=== PATIENT | male | born 1950 | race African-American/Black ===

== ENCOUNTER 2018-01-25 13:13 | Observation (INO) | payer MEDICARE ==
[2018-01-25] MEDS ORDERED: NORMAL SALINE 1000 ML 1,000 ML IV PRN ×2 (15:54→20:38)
[2018-01-25 17:10] LABS: ABSOLUTE BASOPHILS # (AUTO) 0.1 10^3/uL (0.0-0.2); ABSOLUTE LYMPHOCYTES (AUTO) 1.6 10^3/uL (0.5-4.7); ABSOLUTE MONOCYTES (AUTO) 0.5 10^3/uL (0.1-1.4); ABSOLUTE NEUT (AUTO) 3.1 10^3/uL (1.7-8.2); BASOPHILS % (AUTO) 1.3 % (0-2); EOSINOPHILS % (AUTO) 0.2 % (0-6); HEMATOCRIT 40.9 % (37.9-51.0); LYMPHOCYTES % (AUTO) 30.3 % (13-45); MEAN CORPUSCULAR VOLUME 79 fl (80-97); MONOCYTES % (AUTO) 9.7 % (3-13); PLATELET COUNT 250 10^3/uL (150-450); RED BLOOD COUNT 5.21 10^6/uL (4.35-5.55); RED CELL DISTRIBUTION WIDTH 15.9 % (11.5-14.0); SEGMENTED NEUTROPHILS % (AUTO) 58.5 % (42-78); TOTAL CELLS COUNTED % (AUTO) 100 %; WHITE BLOOD COUNT 5.4 10^3/uL (4.0-10.5)
--- NOTE | 2018-01-25 17:14 | RADIOLOGY REPORT (SQ) ---
EXAM DESCRIPTION: CHEST SINGLE VIEW COMPLETED DATE/TIME: 01/25/2018 4:56 pm REASON FOR STUDY: Frequent urination and thirst, SDR COMPARISON: CT chest 10/10/2014 EXAM PARAMETERS: NUMBER OF VIEWS: One view. TECHNIQUE: Single frontal radiographic view of the chest acquired. RADIATION DOSE: NA LIMITATIONS: None. FINDINGS: LUNGS AND PLEURA: No opacities, masses or pneumothorax. No pleural effusion. MEDIASTINUM AND HILAR STRUCTURES: No masses. Contour normal. HEART AND VASCULAR STRUCTURES: Heart normal in size. Normal vasculature. BONES: No acute findings. HARDWARE: None in the chest. OTHER: No other significant finding. IMPRESSION: NO ACUTE RADIOGRAPHIC FINDING IN THE CHEST. TECHNICAL DOCUMENTATION: JOB ID: [id number] [employer]- All Rights Reserved Reading location - IP/workstation name: [email or web address]
[2018-01-25 17:41] LABS: HEMOGLOBIN 13.7 g/dL (13.5-17.0); MEAN CORPUSCULAR HEMOGLOBIN 26.3 pg (27.0-33.4); MEAN CORPUSCULAR HGB CONC 33.5 g/dL (32.0-36.0)
[2018-01-25 18:39] LABS: ALANINE AMINOTRANSFERASE 53 U/L (21-72); ALBUMIN 3.7 g/dL (3.5-5.0); ALKALINE PHOSPHATASE 99 U/L (38-126); ANION GAP 13 (5-19); ASPARTATE AMINO TRANSFERASE 33 U/L (17-59); BILIRUBIN,DIRECT 0.6 mg/dL (0.0-0.4); BILIRUBIN,TOTAL 0.6 mg/dL (0.2-1.3); BLOOD UREA NITROGEN 18 mg/dL (7-20); CALCIUM 9.3 mg/dL (8.4-10.2); CARBON DIOXIDE 22 mmol/L (22-30); CHLORIDE 98 mmol/L (98-107); POTASSIUM 5.4 mmol/L (3.6-5.0); SODIUM 132.7 mmol/L (137-145); TOTAL PROTEIN 7.3 g/dL (6.3-8.2)
[2018-01-25 18:49] LABS: GLUCOSE 449 mg/dL (75-110)
[2018-01-25 19:09] LABS: FREE T4 (FREE THYROXINE) 1.36 ng/dL (0.78-2.19)
[2018-01-25 19:23] LABS: THYROID STIMULATING HORMONE 0.54 uIU/mL (0.47-4.68)
[2018-01-25] MEDS ORDERED: METFORMIN HCL 500 MG TABLET PO ONE (20:35)
[2018-01-25] MEDS ORDERED: DEXTROSE 50%-WATER 25 GM/50 ML DISP.SYRIN IV PRN ×2 (20:38)
[2018-01-25] MEDS ORDERED: GLUCAGON,HUMAN RECOMB 1 MG INJ IM PRN (20:38)
[2018-01-25] MEDS ORDERED: DEXTROSE 40% GEL 15 GM TUBE PO PRN ×2 (20:38)
[2018-01-25] MEDS ORDERED: NORMAL SALINE 100 ML with INSULIN REGULAR, HUMAN 100 UNIT IV PRN ×2 (20:38)
[2018-01-25] MEDS ORDERED: (PENDING PHARMACY ID) (Omega-3/Dha/Epa/Fish Oil [Fish Oil 1,000 Mg Softgel] 1 CAP) PO SCH (20:45)
[2018-01-25] MEDS ORDERED: (PENDING PHARMACY ID) (Lisinopril/Hydrochlorothiazide [Lisinopril-Hctz 20-12.5 Mg Tab] 1 T PO SCH (20:45)
[2018-01-25] MEDS ORDERED: MULTIVITAMIN WITH IRON PO SCH (20:45)
--- NOTE | 2018-01-25 20:47 | PDOC H&P ---
History of Present Illness Admission Date/PCP: 01/25/18 13:13 RON GIBSON MD History of Present Illness: PEPE KUO is a 67 year old male,He came to the office today, this is the first office visit in 2 years, for evaluation of, polyuria, polydipsia, polyphagia, weight loss the symptoms is consistent with classic diabetes mellitus, the Accu-Chek could not be recorded, he was clinically dry on examination, he was admitted directly from the office into the hospital for evaluation the point of care glucose was 476 metabolic panel did not show any acidosis. He is admitted directly into the hospital essentially for hydration and normalization of the serum glucose Past Medical History Cardiac Medical History: Reports: Hypertension Social History Smoking Status: Current Every Day Smoker Cigarettes Packs Per Day: 4 Cigars Per Day: 0 Pipes Per Day: 0 Number of Years Smokin Last Time Smoked: January 24, 2018 Frequency of Alcohol Use: Occasional Hx Recreational Drug Use: No Drugs: None Family History Family History: Reviewed & Not Pertinent Parental Family History Reviewed: Yes Children Family History Reviewed: Yes Sibling(s) Family History Reviewed.: Yes Medication/Allergy Home Medications: Aspirin [Aspirin EC] 81 mg PO DAILY 01/25/18 Lisinopril/Hydrochlorothiazide [Lisinopril-Hctz 20-12.5 mg Tab] 1 tab PO DAILY 01/25/18 Multivitamin with Iron [One Daily Multivitamin] 1 tab PO DAILY 01/25/18 [place]-3/Dha/Epa/Fish Oil [Fish Oil 1,000 mg Softgel] 1 cap PO DAILY 01/25/18 Review of Systems Constitutional: PRESENT: weight loss Eyes: ABSENT: visual disturbances Ears: ABSENT: hearing changes Cardiovascular: ABSENT: chest pain, dyspnea on exertion, edema, orthropnea, palpitations Respiratory: ABSENT: cough, hemoptysis Gastrointestinal: ABSENT: abdominal pain, constipation, diarrhea, hematemesis, hematochezia, nausea, vomiting Genitourinary: ABSENT: dysuria, hematuria Musculoskeletal: ABSENT: joint swelling Integumentary: ABSENT: rash, wounds Neurological: ABSENT: abnormal gait, abnormal speech, confusion, dizziness, focal weakness, syncope Psychiatric: ABSENT: as per HPI, anxiety, depression, hallucinations, homidical ideation, suicidal ideation, other Endocrine: PRESENT: polydipsia, polyphagia, polyuria Hematologic/Lymphatic: ABSENT: easy bleeding, easy bruising, lymphadenopathy Physical Exam Vital Signs: Temp Pulse Resp BP Pulse Ox 98.1 F 97 20 129/82 H 96 01/25/18 15:36 01/25/18 17:00 01/25/18 14:52 01/25/18 15:36 01/25/18 15:36 Intake & Output 01/24/18 01/25/18 01/26/18 06:59 06:59 06:59 Intake Total 110 Output Total 0 Balance 110 General appearance: PRESENT: no acute distress, well-developed, well-nourished Head exam: PRESENT: atraumatic, normocephalic Eye exam: PRESENT: conjunctiva pink, EOMI, PERRLA Ear exam: PRESENT: normal external ear exam Mouth exam: PRESENT: dry mucosa Neck exam: PRESENT: full ROM Respiratory exam: PRESENT: clear to auscultation maira Cardiovascular exam: PRESENT: RRR, +S1, +S2 Pulses: PRESENT: normal dorsalis pedis pul, +2 pedal pulses bilateral Vascular exam: PRESENT: normal capillary refill GI/Abdominal exam: PRESENT: normal bowel sounds, soft Rectal exam: PRESENT: deferred Neurological exam: PRESENT: alert, awake, oriented to person, oriented to place , oriented to time, oriented to situation, CN II-XII grossly intact Psychiatric exam: PRESENT: appropriate affect, normal mood Skin exam: PRESENT: dry, intact, warm Results Laboratory Results: 01/25/18 16:36 01/25/18 18:00 01/25/18 01/25/18 01/25/18 16:36 16:36 16:36 WBC 5.4 RBC 5.21 Hgb 13.7 Hct 40.9 MCV 79 L MCH 26.3 L MCHC 33.5 RDW 15.9 H Plt Count 250 Seg Neutrophils % 58.5 Lymphocytes % 30.3 Monocytes % 9.7 Eosinophils % 0.2 Basophils % 1.3 Absolute Neutrophils 3.1 Absolute Lymphocytes 1.6 Absolute Monocytes 0.5 Absolute Eosinophils 0.0 Absolute Basophils 0.1 Sodium Cancelled Potassium Cancelled Chloride Cancelled Carbon Dioxide Cancelled Anion Gap Cancelled BUN Cancelled Creatinine Cancelled Est GFR ( Amer) Cancelled Est GFR (Non-Af Amer) Cancelled Glucose Cancelled Calcium Cancelled Total Bilirubin Cancelled AST Cancelled ALT Cancelled Alkaline Phosphatase Cancelled Total Protein Cancelled Albumin Cancelled TSH Cancelled Free T4 Cancelled 01/25/18 01/25/18 18:00 18:00 WBC RBC Hgb Hct MCV MCH MCHC RDW Plt Count Seg Neutrophils % Lymphocytes % Monocytes % Eosinophils % Basophils % Absolute Neutrophils Absolute Lymphocytes Absolute Monocytes Absolute Eosinophils Absolute Basophils Sodium 132.7 L Potassium 5.4 H Chloride 98 Carbon Dioxide 22 Anion Gap 13 BUN 18 Creatinine 0.76 Est GFR ( Amer) > 60 Est GFR (Non-Af Amer) > 60 Glucose 449 H* Calcium 9.3 Total Bilirubin 0.6 AST 33 ALT 53 Alkaline Phosphatase 99 Total Protein 7.3 Albumin 3.7 TSH 0.54 Free T4 1.36 Impressions: Chest X-Ray 01/25/18 00:00 IMPRESSION: NO ACUTE RADIOGRAPHIC FINDING IN THE CHEST. Assessment & Plan - Diagnosis (1) Diabetic hyperosmolar non-ketotic state Is this a current diagnosis for this admission?: Yes Plan: Patient is admitted for observation for the management of diabetic hyperosmolar nonketotic state the mainstay of treatment is IV fluid normal saline, he has type 2 diabetes mellitus, he is also started on metformin, Januvia, atorvastatin , he may also require insulin drip to a normalized the serum glucose efficiently and effectively before discharge home
[2018-01-25] MEDS ORDERED: ASPIRIN 81 MG TABLET, ENT COATED PO ONE (21:00)
[2018-01-25 21:36] LABS: ANION GAP 10 (5-19); BLOOD UREA NITROGEN 18 mg/dL (7-20); CALCIUM 8.9 mg/dL (8.4-10.2); CARBON DIOXIDE 21 mmol/L (22-30); CHLORIDE 100 mmol/L (98-107); POTASSIUM 5.2 mmol/L (3.6-5.0); SODIUM 131.1 mmol/L (137-145)
[2018-01-25 21:56] LABS: GLUCOSE 420 mg/dL (75-110)
[2018-01-25] MEDS ORDERED: ATORVASTATIN CALCIUM 40 MG TABLET PO SCH (22:00)
[2018-01-25 22:14] LABS: MEAN CORPUSCULAR VOLUME 78 fl (80-97)
[2018-01-25 22:22] LABS: INTERNATIONAL RATION (INR) 0.97; PROTHROMBIN TIME 13.4 SEC (11.4-15.4)
[2018-01-25 22:23] LABS: HEMATOCRIT 37.6 % (37.9-51.0); PARTIAL THROMBOPLASTIN TIME 33.5 SEC (23.5-35.8); RED BLOOD COUNT 4.79 10^6/uL (4.35-5.55); WHITE BLOOD COUNT 5.8 10^3/uL (4.0-10.5)
[2018-01-25 22:24] LABS: HEMOGLOBIN 12.6 g/dL (13.5-17.0); PLATELET COUNT 232 10^3/uL (150-450); RED CELL DISTRIBUTION WIDTH 15.7 % (11.5-14.0)
[2018-01-25 22:25] LABS: MEAN CORPUSCULAR HEMOGLOBIN 26.3 pg (27.0-33.4); MEAN CORPUSCULAR HGB CONC 33.5 g/dL (32.0-36.0)
[2018-01-25 23:44] LABS: APPEARANCE,URINE CLEAR; BILIRUBIN,URINE NEGATIVE (NEGATIVE); COLOR,URINE STRAW; GLUCOSE, URINE >=500 mg/dL (NEGATIVE); KETONES,URINE 20 mg/dL (NEGATIVE); LEUKOCYTE ESTERASE,URINE NEGATIVE (NEGATIVE); NITRITE,URINE NEGATIVE (NEGATIVE); PROTEIN,URINE NEGATIVE (NEGATIVE); URINE SPECIFIC GRAVITY 1.028; UROBILINOGEN,URINE NEGATIVE mg/dL (<2.0)
[2018-01-26 01:29] LABS: ANION GAP 11 (5-19); BLOOD UREA NITROGEN 16 mg/dL (7-20); CALCIUM 8.5 mg/dL (8.4-10.2); CARBON DIOXIDE 21 mmol/L (22-30); CHLORIDE 102 mmol/L (98-107); GLUCOSE 315 mg/dL (75-110); POTASSIUM 4.6 mmol/L (3.6-5.0); SODIUM 134.1 mmol/L (137-145)
[2018-01-26 06:35] LABS: ANION GAP 6 (5-19); BLOOD UREA NITROGEN 12 mg/dL (7-20); CALCIUM 8.6 mg/dL (8.4-10.2); CARBON DIOXIDE 22 mmol/L (22-30); CHLORIDE 107 mmol/L (98-107); GLUCOSE 152 mg/dL (75-110); SODIUM 134.9 mmol/L (137-145)
--- NOTE | 2018-01-26 07:58 | PDOC DISCHARGE SUMMARY ---
General - Admit/Disc Date/PCP Admission Date/Primary Care Provider: 01/25/18 13:13 RON GIBSON MD Discharge Date: 01/26/18 - Discharge Diagnosis (1) Diabetic hyperosmolar non-ketotic state Is this a current diagnosis for this admission?: Yes - Additional Information Prescriptions: Atorvastatin Calcium [Lipitor 40 mg Tablet] 40 mg PO QHS #90 tablet Metformin HCl [Glucophage 500 mg Tablet] 1,000 mg PO BIDACBS #180 tablet Sitagliptin Phosphate [Januvia 50 mg Tablet] 100 mg PO DAILY #90 tablet Home Medications: Aspirin [Aspirin EC] 81 mg PO DAILY 01/25/18 Lisinopril/Hydrochlorothiazide [Lisinopril-Hctz 20-12.5 mg Tab] 1 tab PO DAILY 01/25/18 Multivitamin with Iron [One Daily Multivitamin] 1 tab PO DAILY 01/25/18 [place]-3/Dha/Epa/Fish Oil [Fish Oil 1,000 mg Softgel] 1 cap PO DAILY 01/25/18 Atorvastatin Calcium [Lipitor 40 mg Tablet] 40 mg PO QHS #90 tablet 01/26/18 Metformin HCl [Glucophage 500 mg Tablet] 1,000 mg PO BIDACBS #180 tablet Sitagliptin Phosphate [Januvia 50 mg Tablet] 100 mg PO DAILY #90 tablet History of Present Illness History of Present Illness: PEPE KUO is a 67 year old male,He came to the office today, this is the first office visit in 2 years, for evaluation of, polyuria, polydipsia, polyphagia, weight loss the symptoms is consistent with classic diabetes mellitus, the Accu-Chek could not be recorded, he was clinically dry on examination, he was admitted directly from the office into the hospital for evaluation the point of care glucose was 476 metabolic panel did not show any acidosis. He is admitted directly into the hospital essentially for hydration and normalization of the serum glucose Hospital Course Hospital Course: Patient was admitted for observation and management of hyperosmolar nonketotic diabetes mellitus, newly diagnosed diabetes, treated with IV fluid insulin drip. He was admitted essentially for hydration Physical Exam Vital Signs: Temp Pulse Resp BP Pulse Ox 98.1 F 88 20 111/67 94 01/26/18 03:16 01/26/18 03:16 01/26/18 03:16 01/26/18 03:16 01/26/18 03:16 Intake & Output 01/25/18 01/26/18 01/27/18 06:59 06:59 06:59 Intake Total 4108 Output Total 1150 Balance 2958 General appearance: PRESENT: no acute distress, well-developed, well-nourished Head exam: PRESENT: atraumatic, normocephalic Eye exam: PRESENT: conjunctiva pink, EOMI, PERRLA Ear exam: PRESENT: normal external ear exam Mouth exam: PRESENT: moist, tongue midline Neck exam: PRESENT: full ROM Respiratory exam: PRESENT: clear to auscultation maira Cardiovascular exam: PRESENT: RRR, +S1, +S2 Pulses: PRESENT: normal dorsalis pedis pul, +2 pedal pulses bilateral Vascular exam: PRESENT: normal capillary refill GI/Abdominal exam: PRESENT: normal bowel sounds, soft Rectal exam: PRESENT: deferred Neurological exam: PRESENT: alert, awake, oriented to person, oriented to place , oriented to time, oriented to situation, CN II-XII grossly intact Psychiatric exam: PRESENT: appropriate affect, normal mood Skin exam: PRESENT: dry, intact, warm Results Laboratory Results: 01/25/18 21:25 01/26/18 05:09 01/25/18 01/25/18 01/25/18 16:36 16:36 16:36 WBC 5.4 RBC 5.21 Hgb 13.7 Hct 40.9 MCV 79 L MCH 26.3 L MCHC 33.5 RDW 15.9 H Plt Count 250 Seg Neutrophils % 58.5 Lymphocytes % 30.3 Monocytes % 9.7 Eosinophils % 0.2 Basophils % 1.3 Absolute Neutrophils 3.1 Absolute Lymphocytes 1.6 Absolute Monocytes 0.5 Absolute Eosinophils 0.0 Absolute Basophils 0.1 Sodium Cancelled Potassium Cancelled Chloride Cancelled Carbon Dioxide Cancelled Anion Gap Cancelled BUN Cancelled Creatinine Cancelled Est GFR ( Amer) Cancelled Est GFR (Non-Af Amer) Cancelled Glucose Cancelled Calcium Cancelled Total Bilirubin Cancelled AST Cancelled ALT Cancelled Alkaline Phosphatase Cancelled Total Protein Cancelled Albumin Cancelled TSH Cancelled Free T4 Cancelled Urine Color Urine Appearance Urine pH Ur Specific [place] Urine Protein Urine Glucose (UA) Urine Ketones Urine Blood Urine Nitrite Ur Leukocyte Esterase Urine WBC (Auto) 04/03/0901/25/18 01/25/18 18:00 18:00 21:00 WBC RBC Hgb Hct MCV MCH MCHC RDW Plt Count Seg Neutrophils % Lymphocytes % Monocytes % Eosinophils % Basophils % Absolute Neutrophils Absolute Lymphocytes Absolute Monocytes Absolute Eosinophils Absolute Basophils Sodium 132.7 L 131.1 L Potassium 5.4 H 5.2 H Chloride 98 100 Carbon Dioxide 22 21 L Anion Gap 13 10 BUN 18 18 Creatinine 0.76 0.76 Est GFR ( Amer) > 60 > 60 Est GFR (Non-Af Amer) > 60 > 60 Glucose 449 H* 420 H* Calcium 9.3 8.9 Total Bilirubin 0.6 AST 33 ALT 53 Alkaline Phosphatase 99 Total Protein 7.3 Albumin 3.7 TSH 0.54 Free T4 1.36 Urine Color Urine Appearance Urine pH Ur Specific [place] Urine Protein Urine Glucose (UA) Urine Ketones Urine Blood Urine Nitrite Ur Leukocyte Esterase Urine WBC (Auto) 01/25/18 01/25/18 01/25/18 21:25 21:25 22:35 WBC 5.8 RBC 4.79 Hgb 12.6 L Hct 37.6 L MCV 78 L MCH 26.3 L MCHC 33.5 RDW 15.7 H Plt Count 232 Seg Neutrophils % Lymphocytes % Monocytes % Eosinophils % Basophils % Absolute Neutrophils Absolute Lymphocytes Absolute Monocytes Absolute Eosinophils Absolute Basophils Sodium Potassium Chloride Carbon Dioxide Anion Gap BUN Creatinine 0.74 Est GFR ( Amer) > 60 Est GFR (Non-Af Amer) > 60 Glucose Calcium Total Bilirubin AST ALT Alkaline Phosphatase Total Protein Albumin TSH Free T4 Urine Color STRAW Urine Appearance CLEAR Urine pH 6.0 Ur Specific [place] 1.028 Urine Protein NEGATIVE Urine Glucose (UA) >=500 H Urine Ketones 20 H Urine Blood NEGATIVE Urine Nitrite NEGATIVE Ur Leukocyte Esterase NEGATIVE Urine WBC (Auto) 2 01/26/18 01/26/18 01:02 05:09 WBC RBC Hgb Hct MCV MCH MCHC RDW Plt Count Seg Neutrophils % Lymphocytes % Monocytes % Eosinophils % Basophils % Absolute Neutrophils Absolute Lymphocytes Absolute Monocytes Absolute Eosinophils Absolute Basophils Sodium 134.1 L 134.9 L Potassium 4.6 4.0 Chloride 102 107 Carbon Dioxide 21 L 22 Anion Gap 11 6 BUN 16 12 Creatinine 0.63 0.52 Est GFR ( Amer) > 60 > 60 Est GFR (Non-Af Amer) > 60 > 60 Glucose 315 H 152 H Calcium 8.5 8.6 Total Bilirubin AST ALT Alkaline Phosphatase Total Protein Albumin TSH Free T4 Urine Color Urine Appearance Urine pH Ur Specific [place] Urine Protein Urine Glucose (UA) Urine Ketones Urine Blood Urine Nitrite Ur Leukocyte Esterase Urine WBC (Auto) Impressions: Chest X-Ray 01/25/18 00:00 IMPRESSION: NO ACUTE RADIOGRAPHIC FINDING IN THE CHEST. Qualifiers - * PATEINT BEING DISCHARGED WITH ANY OF THE FOLLOWING DIAGNOSIS?: No VTE patient discharged on overlapping Therapy?: Yes
[2018-01-26] MEDS ORDERED: METFORMIN HCL 500 MG TABLET PO SCH (08:00)
[2018-01-26 08:57] VITALS: BP 129/82
[2018-01-26] MEDS ORDERED: ENOXAPARIN SODIUM INJ 40 MG/0.4 ML DISP.SYRIN SUBCUT SCH (10:00)
[2018-01-26] MEDS ORDERED: MULTIVITAMIN TABLET PO SCH (10:00)
[2018-01-26] MEDS ORDERED: SITAGLIPTIN PHOSPHATE 50 MG TABLET PO SCH (10:00)
[2018-01-26] MEDS ORDERED: OMEGA-3 ACID ETHYL ESTERS 1 GM CAPSULE PO SCH (10:00)
[2018-01-26] MEDS ORDERED: LISINOPRIL 10 MG TABLET PO SCH (10:00)
[2018-01-26] MEDS ORDERED: ASPIRIN 81 MG TABLET, ENT COATED PO SCH (10:00)
[2018-01-26] MEDS ORDERED: HYDROCHLOROTHIAZIDE 12.5 MG CAPSULE PO SCH (10:00)
[2018-01-26 10:42] LABS: ANION GAP 7 (5-19); BLOOD UREA NITROGEN 11 mg/dL (7-20); CALCIUM 8.6 mg/dL (8.4-10.2); CARBON DIOXIDE 24 mmol/L (22-30); CHLORIDE 107 mmol/L (98-107); GLUCOSE 142 mg/dL (75-110); POTASSIUM 3.9 mmol/L (3.6-5.0); SODIUM 137.8 mmol/L (137-145)
[2018-01-26 13:48] LABS: ANION GAP 8 (5-19); BLOOD UREA NITROGEN 11 mg/dL (7-20); CALCIUM 9.1 mg/dL (8.4-10.2); CARBON DIOXIDE 23 mmol/L (22-30); CHLORIDE 103 mmol/L (98-107); GLUCOSE 316 mg/dL (75-110); POTASSIUM 4.6 mmol/L (3.6-5.0); SODIUM 133.7 mmol/L (137-145)
== END 2018-01-26 13:46 | disposition home or self-care (01) ==
LOC: EH 13:13 → 5 14:39
PROVIDERS: ADMIT Internal Medicine; ATTEND Internal Medicine
DX: E11.00 Type 2 diabetes mellitus with hyperosmolarity without nonketotic hyperglycemic-hyperosmolar coma (NKHHC) (principal); I10 Essential (primary) hypertension; J44.9 Chronic obstructive pulmonary disease, unspecified; F17.210 Nicotine dependence, cigarettes, uncomplicated; Z79.84 Long term (current) use of oral hypoglycemic drugs
CPT/HCPCS: 36415 ×2; 84439; 82962 ×2; 82565; 84443; 85025; 85027; 85610; 85730; 80076; 80048 ×2; 81001; 83036; 71045; G0378 ×2; G0379; A9270 ×10; J7030 ×2; J1815

== ENCOUNTER → 2018-02-09 | Outpatient (CLI) | payer MEDICARE ==
--- NOTE | 2018-02-09 12:59 | RADIOLOGY REPORT (SQ) ---
EXAM DESCRIPTION: CT LUNG CANCER SCREENING COMPLETED DATE/TIME: 02/09/2018 12:46 pm REASON FOR STUDY: PERSONAL HISTORY OF NICOTINE DEPENDENCE (Z87.891) Z87.891 PERSONAL HISTORY OF MARITZA OTINE DEPENDENCE Has the patient had a Chest CT scan within the past year? No. Was the patient offered tobacco cessation counseling? Yes. Was the patient engaged in shared decision making for this test? Yes. Does the patient have signs or symptoms of Lung Cancer? No. Is the patient a smoker? Yes. How many packs per year? 365. How many years since quitting smoking? Current smoker. Patients age: 67. COMPARISON: 09/30/2014. TECHNIQUE: Low Dose CT scan performed of the chest without intravenous contrast for purposes of scre ening for lung cancer. Images reviewed with lung, soft tissue and bone windows. Reconstructed coron al and sagittal MPR images reviewed. All images stored on PACS. All CT scanners at this facility use dose modulation, iterative reconstruction, and/or weight based d osing when appropriate to reduce radiation dose to as low as reasonably achievable (ALARA). [facility]: Dose Right [facility]: CareDose [facility]: Dose Right [facility]: Teradose 4D [facility]: [employer] RADIATION DOSE: CT Rad equipment meets quality standard of care and radiation dose reduction techniq ues were employed. CTDIvol: 2.1 mGy. DLP: 90 mGy-cm. mGy. . LIMITATIONS: No technical limitations. FINDINGS: LUNG NODULES: Description: Stable nodule in the left upper lobe, unchanged since 2013. No new nodules or masses. Size: 8 mm. REMAINING LUNGS AND PLEURA: No pleural effusions or calcifications. No pneumothorax. No scarrin g or interstitial changes. HILAR AND MEDIASTINAL STRUCTURES: No identified masses. No abnormal nodes. HEART AND VASCULAR STRUCTURES: No aortic aneurysm. No pericardial effusion. No cardiac devices. CORONARY ARTERY CALCIFICATIONS: No significant calcifications. UPPER ABDOMEN: No significant findings. THYROID AND OTHER SOFT TISSUES: No masses. No adenopathy. BONES: No significant finding. OTHER: No other significant findings. IMPRESSION: BENIGN FINDINGS IN THE LUNGS. NO OTHER CLINICALLY SIGNIFICANT/POTENTIALLY CLINICALLY SIGNIFICANT FINDINGS LUNGRADS: LUNGRADS: 2 BENIGN APPEARANCE OR BEHAVIOR. NODULES WITH A VERY LOW LIKELIHOOD OF BECOMIN G A CLINICALLY ACTIVE CANCER DUE TO SIZE OR LACK OF GROWTH. MODIFIER: NONE. RECOMMENDATION: Continue annual screening with LDCT in 12 months. COMMENT: CRITERIA: Solid nodule(s): < 6 mm; new < 4 mm. Part solid nodule(s): < 6 mm total diameter on baseline screening. Non solid nodule(s) (GGN): < 20 mm OR ? 20 and unchanged or slowly growing. Category 3 or 4 modules unchanged for ? 3 months. TECHNICAL DOCUMENTATION: JOB ID: [id number] Quality ID # [id number]: Final reports with documentation of one or more dose reduction techniques (e.g., Au tomated exposure control, adjustment of the mA and/or kV according to patient size, use of iterative reconstruction technique) 2010 [facility], [place] Radiology Reading location - IP/workstation name: [email or web address]
== END ==
LOC: RAD 12:32
PROVIDERS: ATTEND Internal Medicine
DX: Z12.2 Encounter for screening for malignant neoplasm of respiratory organs (principal); Z87.891 Personal history of nicotine dependence
CPT/HCPCS: G0297

== ENCOUNTER 2020-10-06 15:40 | Inpatient (IN) | payer MEDICARE ==
--- NOTE | 2020-10-06 16:19 | ER Document Report ---
ED General - General Stated Complaint: FATIGUE/BREATHING PROBLEMS Time Seen by Provider: 10/06/20 16:11 Primary Care Provider: RON GIBSON MD [Primary Care Provider] - Follow up as needed TRAVEL OUTSIDE OF THE [place] IN LAST 30 DAYS: No - HPI Notes: 70-year-old male with being directly admitted by Dr. Gibson for shortness of breath, anemia, type 2 diabetes and would like him to have a work-up with a CTA and blood work as well as an EKG. Denies any fevers chills. Eating and drink without any issues. Patient is not having any pain. - Related Data Allergies/Adverse Reactions: No Known Allergies Allergy (Verified 10/06/20 16:08) Past Medical History - General Information source: Patient - Social History Smoking Status: Unknown if Ever Smoked Family History: Reviewed & Not Pertinent - Past Medical History Cardiac Medical History: Reports: Hx Hypertension Renal/ Medical History: Reports: Hx Kidney Stones Review of Systems - Review of Systems Constitutional: No symptoms reported EENT: No symptoms reported Cardiovascular: No symptoms reported Respiratory: See HPI Gastrointestinal: No symptoms reported Genitourinary: No symptoms reported Male Genitourinary: No symptoms reported Musculoskeletal: No symptoms reported Skin: No symptoms reported Hematologic/Lymphatic: No symptoms reported Neurological/Psychological: No symptoms reported Physical Exam - Vital signs Vitals: Temp Pulse Resp BP Pulse Ox 98.0 F 103 H 20 159/90 H 96 10/06/20 15:59 10/06/20 15:59 10/06/20 15:59 10/06/20 15:59 10/06/20 15:59 - Notes Notes: MEDICATIONS: I agree with the patient medications as charted by the RN. ALLERGIES: I agree with the allergies as charted by the RN. PAST MEDICAL HISTORY/PAST SURGICAL HISTORY: Reviewed and agree as charted by RN. SOCIAL HISTORY: Reviewed and agree as charted by RN. FAMILY HISTORY: No significant familial comorbid conditions directly related to patient complaint EXAM: Reviewed vital signs as charted by RN. PHYSICAL EXAMINATION:reviewed vital signs by RN GENERAL: Well-appearing, well-nourished and in no acute distress. HEAD: Atraumatic, normocephalic. EYES: Pupils equal round and reactive to light, extraocular movements intact, sclera anicteric, conjunctiva are normal. ENT: Nares patent, oropharynx clear without exudates. Moist mucous membranes. NECK: Normal range of motion, supple without lymphadenopathy LUNGS: Breath sounds clear to auscultation bilaterally and equal. No wheezes rales or rhonchi. HEART: Regular rate and rhythm without murmurs ABDOMEN: Soft, nontender, nondistended abdomen. No guarding, no rebound. No masses appreciated. Musculoskeletal: Normal range of motion, no pitting or edema. No cyanosis. NEUROLOGICAL: Cranial nerves grossly intact. Normal speech, normal gait. Normal sensory, motor exams PSYCH: Normal mood, normal affect. SKIN: Warm, Dry, normal turgor, no rashes or lesions noted. Course - Re-evaluation Re-evalutation: 10/06/20 16:21 Afebrile vital stable no distress. Nurses notes reviewed. Orders have been put in for Dr. Gibson the patient is waiting for direct admit. I have greeted and performed a rapid initial assessment of this patient. A comprehensive ED assessment and evaluation of the patient, analysis of test results and completion of medical decision making process will be conducted by an additional ED providers. - Vital Signs Vital signs: Temp Pulse Resp BP Pulse Ox 98.0 F 103 H 20 159/90 H 96 10/06/20 15:59 10/06/20 15:59 10/06/20 15:59 10/06/20 15:59 10/06/20 15:59 - Laboratory Results Critical Laboratory Results Reviewed: No Critical Results - Radiology Results Critical Radiology Results Reviewed: No Critical Results Discharge - Discharge Clinical Impression: SOB (shortness of breath) Condition: Stable Disposition: ADMITTED INPATIENT Admitting Provider: William Referrals: RON GIBSON MD [Primary Care Provider] - Follow up as needed
[2020-10-06 17:26] LABS: ABSOLUTE BASOPHILS # (AUTO) 0.1 10^3/uL (0.0-0.2); ABSOLUTE LYMPHOCYTES (AUTO) 1.8 10^3/uL (0.5-4.7); ABSOLUTE MONOCYTES (AUTO) 0.9 10^3/uL (0.1-1.4); ABSOLUTE NEUT (AUTO) 4.6 10^3/uL (1.7-8.2); BASOPHILS % (AUTO) 0.8 % (0-2); EOSINOPHILS % (AUTO) 0.6 % (0-6); HEMATOCRIT 25.9 % (37.9-51.0); LYMPHOCYTES % (AUTO) 23.9 % (13-45); MEAN CORPUSCULAR HEMOGLOBIN 17.7 pg (27.0-33.4); MEAN CORPUSCULAR HGB CONC 30.7 g/dL (32.0-36.0); PLATELET COUNT 495 10^3/uL (150-450); RED CELL DISTRIBUTION WIDTH 21.4 % (11.5-14.0); SEGMENTED NEUTROPHILS % (AUTO) 62.7 % (42-78); TOTAL CELLS COUNTED % (AUTO) 100 %; WHITE BLOOD COUNT 7.3 10^3/uL (4.0-10.5)
[2020-10-06 17:39] LABS: ALBUMIN 4.4 g/dL (3.5-5.0); ALKALINE PHOSPHATASE 80 U/L (38-126); ANION GAP 10 (5-19); ASPARTATE AMINO TRANSFERASE 27 U/L (17-59); BILIRUBIN,DIRECT 0.1 mg/dL (0.0-0.4); BILIRUBIN,TOTAL 0.5 mg/dL (0.2-1.3); BLOOD UREA NITROGEN 10 mg/dL (7-20); CALCIUM 10.4 mg/dL (8.4-10.2); CARBON DIOXIDE 31 mmol/L (22-30); CHLORIDE 98 mmol/L (98-107); GLUCOSE 99 mg/dL (75-110); POTASSIUM 5.1 mmol/L (3.6-5.0); TOTAL PROTEIN 8.7 g/dL (6.3-8.2)
[2020-10-06 18:02] LABS: HEMOGLOBIN 7.9 g/dL (13.5-17.0); MEAN CORPUSCULAR VOLUME 58 fl (80-97)
[2020-10-06 18:03] LABS: ANISOCYTOSIS 3+; HYPOCHROMASIA 4+; OVALOCYTES 1+; PLATELET COMMENT ADEQUATE; TARGET CELLS SLIGHT
[2020-10-06] MEDS: NORMAL SALINE 1000 ML 1,000 ML IV PRN (18:57)
[2020-10-06 19:18] LABS: ARTERIAL BLOOD BASE EXCESS 1.8 mmol/L; ARTERIAL BLOOD FIO2 ROOM AIR; ARTERIAL BLOOD H2CO3 1.33 mmol/L (1.05-1.35); ARTERIAL BLOOD HCO3 26.8 mmol/L (20-24); ARTERIAL BLOOD O2 SATURATION 95.9 % (94-98); ARTERIAL BLOOD PCO2 44.2 mmHg (35-45); ARTERIAL BLOOD PO2 80.8 mmHg (80-100); ARTERIAL BLOOD TOTAL CO2 28.2 mmol/L (23-27)
[2020-10-06 20:13] LABS: ABSOLUTE RETICS # 0.125 10^6/uL (0.028-0.122); RETICULOCYTE COUNT (AUTO) 2.94 % (0.66-2.85)
--- NOTE | 2020-10-06 20:24 | RADIOLOGY REPORT (SQ) ---
CLINICAL INDICATION: sob. . TECHNIQUE: CT arteriography was obtained of the chest with multiplanar MIP and/or 3-D angiographic reconstructions. This exam was performed according to our departmental dose-optimization program, which includes automated exposure control, adjustment of the mA and/or kV according to patient size and/or use of iterative reconstruction techniques. COMPARISON: None available. CORRELATION: None. FINDINGS: Heterogeneous contrast bolus. Average Hounsfield unit measurement within main pulmonary artery segment of 233. Artifact from venous opacification. There is evidence of pulmonary emboli left lower lobe posterior basal segment.. Series 3 image 81 through 93. This a small thrombus burden. No evidence of right heart strain Thoracic aorta is aneurysmally dilated at 4.5 cm in the ascending portion, not a surgical lesion by size criteria. The heart is prominent with coronary calcification. No pericardial effusion. No bulky mediastinal adenopathy. Thyroid is enlarged but homogeneous. The lungs are grossly clear. No consolidation or edema. No effusion or pneumothorax. Chronic emphysematous changes bilaterally. Visualized abdominal contents are unremarkable. 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 IMPRESSION: Imaging is degraded by patient motion, with resultant artifact. The best possible images were obtained. Small pulmonary embolus left lung base. This is a small thrombus burden. No evidence of right heart strain. Chronic parenchymal lung change.. 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 ADDENDUM: Prior examination February 09, 2018 has been retrieved. The ascending thoracic aorta is stable. Chronic parenchymal lung changes are present previously.
[2020-10-06 20:26] LABS: IRON(TIBC) 15.8 ug/dL (49-181)
[2020-10-06] MEDS ORDERED: DEXTROSE 40% GEL 15 GM TUBE PO PRN ×2 (20:45)
[2020-10-06] MEDS ORDERED: (PENDING PHARMACY ID) (Lisinopril/Hydrochlorothiazide [Lisinopril-Hctz 20-12.5 Mg Tab] 1 E PO SCH (20:45)
[2020-10-06] MEDS ORDERED: GLUCAGON,HUMAN RECOMB 1 MG INJ IM PRN (20:45)
[2020-10-06] MEDS ORDERED: (PENDING PHARMACY ID) (Dapagliflozin Propanediol [Farxiga] 10 MG Tablet) PO SCH (20:45)
[2020-10-06] MEDS ORDERED: DEXTROSE 50%-WATER 25 GM/50 ML DISP.SYRIN IV PRN ×2 (20:45)
--- NOTE | 2020-10-06 20:50 | PDOC H&P ---
History of Present Illness Admission Date/PCP: 10/06/20 18:28 RON GIBSON MD History of Present Illness: PEPE KUO is a 70 year old male, He came to the office today for evaluation of shortness of breath, fatigue, excessive somnolence. In the office he was pale looking, on auscultation of his chest there was prolonged expiratory phase of respiration. Patient is an avid smoker, he was also found to have tachycardia in the office, I suspect pulmonary embolism and also anemia I felt the best plan of care will be inpatient evaluation he was admitted directly from the office into the hospital. CT angiogram of the chest was done demonstrated embolus in the left lower lobe posterior segment, the blood work demonstrated anemia with microcytic anemia hemoglobin of 7.8.. The iron indices is low consistent with iron deficiency anemia suggesting chronic blood loss probably from GI tract, patient will need GI endoscopy, the last office visit was in December, His weight was 200 pounds at the time the weight today is 186 pounds, He has unintentional weight loss. Past Medical History Cardiac Medical History: Reports: Hypertension Pulmonary Medical History: Reports: Chronic Obstructive Pulmonary Disease (COPD) Endocrine Medical History: Reports: Diabetes Mellitus Type 1 Social History Smoking Status: Former Smoker Electronic Cigarette use?: No Frequency of Alcohol Use: Occasional Hx Recreational Drug Use: No Drugs: None Family History Family History: Reviewed & Not Pertinent Parental Family History Reviewed: Yes Children Family History Reviewed: Yes Sibling(s) Family History Reviewed.: Yes Medication/Allergy Home Medications: Lisinopril/Hydrochlorothiazide [Lisinopril-Hctz 20-12.5 mg Tab] 1 tab PO DAILY 01/25/18 Atorvastatin Calcium [Lipitor 40 mg Tablet] 40 mg PO QHS #90 tablet 01/26/18 Metformin HCl [Glucophage 500 mg Tablet] 1,000 mg PO BIDACBS #180 tablet 01/26/18 Dapagliflozin Propanediol [Farxiga] 10 mg PO DAILY 10/06/20 Allergies/Adverse Reactions: No Known Allergies Allergy (Verified 10/06/20 16:08) Review of Systems Constitutional: PRESENT: fatigue, weakness, weight loss Eyes: ABSENT: visual disturbances Ears: ABSENT: hearing changes Cardiovascular: PRESENT: dyspnea on exertion Respiratory: PRESENT: dyspnea. ABSENT: cough, hemoptysis Gastrointestinal: ABSENT: abdominal pain, constipation, diarrhea, hematemesis, hematochezia, nausea, vomiting Genitourinary: ABSENT: dysuria, hematuria Musculoskeletal: ABSENT: joint swelling Integumentary: ABSENT: rash, wounds Neurological: ABSENT: abnormal gait, abnormal speech, confusion, dizziness, f ocal weakness, syncope Psychiatric: ABSENT: anxiety, depression, homidical ideation, suicidal ideation Endocrine: ABSENT: cold intolerance, heat intolerance, menstrual abnormalities, polydipsia, polyuria Hematologic/Lymphatic: ABSENT: easy bleeding, easy bruising, lymphadenopathy Physical Exam Vital Signs: Temp Pulse Resp BP Pulse Ox 98.0 F 103 H 18 163/94 H 100 10/06/20 15:59 10/06/20 15:59 10/06/20 20:01 10/06/20 20:01 10/06/20 20:01 Intake & Output 10/05/20 10/06/20 10/07/20 06:59 06:59 06:59 Intake Total 210 Balance 210 Weight 83.9 kg General appearance: PRESENT: mild distress Head exam: PRESENT: atraumatic, normocephalic Eye exam: PRESENT: conjunctiva pale, PERRLA Ear exam: PRESENT: normal external ear exam Mouth exam: PRESENT: moist, tongue midline Neck exam: PRESENT: full ROM Respiratory exam: PRESENT: prolonged expiratory phas Cardiovascular exam: PRESENT: RRR, +S1, +S2 Pulses: PRESENT: normal dorsalis pedis pul, +2 pedal pulses bilateral Vascular exam: PRESENT: normal capillary refill GI/Abdominal exam: PRESENT: normal bowel sounds, soft. ABSENT: distended, guarding, mass, organolmegaly, rebound, tenderness Rectal exam: PRESENT: deferred Neurological exam: PRESENT: alert, awake, oriented to person, oriented to place, oriented to time, oriented to situation, CN II-XII grossly intact Psychiatric exam: PRESENT: appropriate affect, normal mood Skin exam: PRESENT: dry, intact, warm Results Laboratory Results: 10/06/20 16:45 10/06/20 16:45 10/06/20 10/06/20 10/06/20 16:45 16:45 18:57 WBC 7.3 RBC 4.50 Hgb 7.9 L Hct 25.9 L MCV 58 L MCH 17.7 L MCHC 30.7 L RDW 21.4 H Plt Count 495 H Seg Neutrophils % 62.7 Retic Count (auto) Carbonic Acid 1.33 HCO3/H2CO3 Ratio 20:1 ABG pH 7.40 ABG pCO2 44.2 ABG pO2 80.8 ABG HCO3 26.8 H ABG O2 Saturation 95.9 ABG Base Excess 1.8 FiO2 ROOM AIR Sodium 139.2 Potassium 5.1 H Chloride 98 Carbon Dioxide 31 H Anion Gap 10 BUN 10 Creatinine 0.79 Est GFR ( Amer) > 60 Glucose 99 Calcium 10.4 H Total Bilirubin 0.5 AST 27 Alkaline Phosphatase 80 Total Protein 8.7 H Albumin 4.4 10/06/20 20:00 WBC RBC Hgb Hct MCV MCH MCHC RDW Plt Count Seg Neutrophils % Retic Count (auto) 2.94 H Carbonic Acid HCO3/H2CO3 Ratio ABG pH ABG pCO2 ABG pO2 ABG HCO3 ABG O2 Saturation ABG Base Excess FiO2 Sodium Potassium Chloride Carbon Dioxide Anion Gap BUN Creatinine Est GFR ( Amer) Glucose Calcium Total Bilirubin AST Alkaline Phosphatase Total Protein Albumin Impressions: Chest/Abdomen CTA 10/06/20 16:16 IMPRESSION: Imaging is degraded by patient motion, with resultant artifact. The best possible images were obtained. Small pulmonary embolus left lung base. This is a small thrombus burden. No evidence of right heart strain. Chronic parenchymal lung change.. 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 ADDENDUM: Prior examination February 09, 2018 has been retrieved. The ascending thoracic aorta is stable. Chronic parenchymal lung changes are present previously. Assessment & Plan - Diagnosis (1) Pulmonary embolism Qualifiers: Pulmonary embolism type: unspecified Chronicity: acute Acute cor pulmonale presence: without acute cor pulmonale Qualified Code(s): I26.99 - O ther pulmonary embolism without acute cor pulmonale Is this a current diagnosis for this admission?: Yes Plan: He has pulmonary embolism, there is no apparent provocative factor, I am really concerned about this patient especially regarding neoplasm, he has iron deficiency anemia, unintentional weight loss, he will be started on Eliquis 10 m g p.o. twice daily for 7 days, loading dose, after which she will start maintenance dose 5 mg p.o. twice daily (2) Iron deficiency anemia due to chronic blood loss Is this a current diagnosis for this admission?: Yes Plan: He has anticancer anemia suggesting chronic blood loss especially from GI system, I will consult custody assistant for GI endoscopy (3) Type 2 diabetes mellitus with diabetic polyneuropathy Qualifiers: Diabetes mellitus terminal block assembler insulin use: without half-way use Qualified Code(s): E11.42 - Type 2 diabetes mellitus with diabetic polyneuropathy Is this a current diagnosis for this admission?: Yes Plan: The hemoglobin A1c is 5.7 suggesting well-controlled diabetes (4) COPD (chronic obstructive pulmonary disease) Qualifiers: COPD type: emphysema Emphysema type: unspecified Qualified Code(s): J43.9 - Emphysema, unspecified Is this a current diagnosis for this admission?: Yes Plan: Patient is a smoker, stopped smoking 2 months ago, he has COPD is not audibly wheezing but there is prolongation of expiratory phase of respiration, may require bronchodilator - Time Time Spent: Greater than 70 Minutes Critical Time spent with patient: 35 or more minutes Medications reviewed and adjusted accordingly: Yes Anticipated Discharge Disposition: Home, Self Care Anticipated Discharge Timeframe: 7 days
[2020-10-06 21:05] LABS: FERRITIN 5.42 ng/mL (17.9-464.0)
[2020-10-06 21:33] LABS: PHOSPHORUS 3.4 mg/dL (2.5-4.5)
[2020-10-06] MEDS: INSULIN LISPRO 100 UNIT/ML 3 ML VIAL SUBCUT SCH (21:33)
[2020-10-06 21:35] LABS: FOLATE 6.29 ng/mL (>2.76)
[2020-10-06 21:39] LABS: INTERNATIONAL RATION (INR) 1.17; PROTHROMBIN TIME 15.1 SEC (11.4-15.4)
[2020-10-06 21:40] LABS: PARTIAL THROMBOPLASTIN TIME 35.7 SEC (23.5-35.8)
[2020-10-06] MEDS: LISINOPRIL 10 MG TABLET PO SCH (21:40)
[2020-10-06] MEDS: ATORVASTATIN CALCIUM 40 MG TABLET PO SCH (21:40)
[2020-10-06] MEDS: HYDROCHLOROTHIAZIDE 12.5 MG TABLET PO SCH (21:41)
[2020-10-06] MEDS: APIXABAN 5 MG TABLET PO SCH (21:41)
[2020-10-06 22:08] LABS: FREE T4 (FREE THYROXINE) 1.11 ng/dL (0.78-2.19)
[2020-10-06 22:09] LABS: CREATINE KINASE MB 0.76 ng/mL (<4.55)
[2020-10-06 22:14] LABS: TROPONIN I < 0.012 ng/mL
[2020-10-06 22:22] LABS: THYROID STIMULATING HORMONE 0.91 uIU/mL (0.47-4.68)
[2020-10-06] MEDS ORDERED: FERRIC CARBOXYMALTOSE INJ 750 MG/15 ML VIAL IV SCH (23:00)
[2020-10-07 03:38] LABS: ABSOLUTE BASOPHILS # (AUTO) 0.1 10^3/uL (0.0-0.2); ABSOLUTE EOSINOPHILS # (AUTO) 0.1 10^3/uL (0.0-0.6); ABSOLUTE LYMPHOCYTES (AUTO) 1.8 10^3/uL (0.5-4.7); ABSOLUTE MONOCYTES (AUTO) 1.2 10^3/uL (0.1-1.4); ABSOLUTE NEUT (AUTO) 5.7 10^3/uL (1.7-8.2); BASOPHILS % (AUTO) 0.8 % (0-2); EOSINOPHILS % (AUTO) 0.7 % (0-6); HEMATOCRIT 22.5 % (37.9-51.0); LYMPHOCYTES % (AUTO) 20.7 % (13-45); MEAN CORPUSCULAR HEMOGLOBIN 16.8 pg (27.0-33.4); MEAN CORPUSCULAR HGB CONC 29.9 g/dL (32.0-36.0); MEAN CORPUSCULAR VOLUME 56 fl (80-97); MONOCYTES % (AUTO) 13.3 % (3-13); PLATELET COUNT 426 10^3/uL (150-450); RED CELL DISTRIBUTION WIDTH 21.1 % (11.5-14.0); SEGMENTED NEUTROPHILS % (AUTO) 64.5 % (42-78); TOTAL CELLS COUNTED % (AUTO) 100 %; WHITE BLOOD COUNT 8.8 10^3/uL (4.0-10.5)
[2020-10-07 03:42] LABS: HEMOGLOBIN 6.7 g/dL (13.5-17.0)
[2020-10-07 04:12] LABS: ALBUMIN 3.6 g/dL (3.5-5.0); ALKALINE PHOSPHATASE 70 U/L (38-126); ANION GAP 8 (5-19); ASPARTATE AMINO TRANSFERASE 25 U/L (17-59); BILIRUBIN,DIRECT 0.2 mg/dL (0.0-0.4); BILIRUBIN,TOTAL 0.6 mg/dL (0.2-1.3); BLOOD UREA NITROGEN 11 mg/dL (7-20); CALCIUM 9.6 mg/dL (8.4-10.2); CARBON DIOXIDE 30 mmol/L (22-30); CHLORIDE 99 mmol/L (98-107); CHOLESTEROL 135.83 mg/dL (0-200); GLUCOSE 106 mg/dL (75-110); POTASSIUM 4.6 mmol/L (3.6-5.0); TOTAL PROTEIN 7.1 g/dL (6.3-8.2); TRIGLYCERIDES 154 mg/dL (<150)
[2020-10-07 04:20] LABS: ANISOCYTOSIS 3+; HYPOCHROMASIA 3+; OVALOCYTES 1+; PLATELET COMMENT ADEQUATE; POIKILOCYTOSIS 1+; POLYCHROMASIA SLIGHT; TARGET CELLS 1+; TEAR DROP CELLS SLIGHT
[2020-10-07 04:23] LABS: CREATINE KINASE MB 0.72 ng/mL (<4.55); VLDL CHOLESTEROL 30.8 mg/dL (10-31)
[2020-10-07 04:24] LABS: DIRECT LDL 74 mg/dL (<100)
[2020-10-07 04:28] LABS: TROPONIN I < 0.012 ng/mL
[2020-10-07] MEDS: NORMAL SALINE 1000 ML 1,000 ML IV PRN (06:54)
--- NOTE | 2020-10-07 07:54 | Progress Note ---
Provider Note Provider Note: I just called attending to confirm that surgicalist would prefer GI to see patient full consult to follow.
[2020-10-07 08:23] LABS: CREATINE KINASE MB 0.78 ng/mL (<4.55)
[2020-10-07 08:33] LABS: TROPONIN I < 0.012 ng/mL
[2020-10-07] MEDS ORDERED: POLYETHYLENE GLYCOL 3350 238 GM POWDER PO ONE (10:00)
[2020-10-07] MEDS: IPRATROPIUM/ALBUTEROL 0.5-2.5 MG/3 ML AMPUL NEB PRN (10:16)
[2020-10-07] MEDS: HYDROCHLOROTHIAZIDE 12.5 MG TABLET PO SCH (10:48)
[2020-10-07] MEDS: LISINOPRIL 10 MG TABLET PO SCH (10:48)
[2020-10-07] MEDS: APIXABAN 5 MG TABLET PO SCH ×2 (10:48→22:02)
--- NOTE | 2020-10-07 11:59 | PDOC CONSULTATION ---
Consultation Consult Date: 10/07/20 Provider Consulted: REINA GRAYSON Consult reason:: Anemia, weight loss History of Present Illness Admission Date/PCP: 10/06/20 18:28 RON GIBSON MD History of Present Illness: PEPE KUO is a 70 year old male asked to see this patient surgery declined to see the patient admitted for pulmonary embolus patient has iron deficiency anemia and weight loss patient needs to have EGD and colonoscopy to exclude a possible hypercoagulable state will schedule with Propofol sedation Past Medical History Cardiac Medical History: Reports: Hypertension Pulmonary Medical History: Reports: Chronic Obstructive Pulmonary Disease (COPD) Endocrine Medical History: Reports: Diabetes Mellitus Type 1 Psychiatric Medical History: Denies: Depression Social History Smoking Status: Unknown if Ever Smoked Electronic Cigarette use?: No Frequency of Alcohol Use: Occasional Hx Recreational Drug Use: No Drugs: None Family History Family History: Reviewed & Not Pertinent Parental Family History Reviewed: Yes Children Family History Reviewed: Unknown Sibling(s) Family History Reviewed.: Unknown Medication/Allergy Home Medications: Lisinopril/Hydrochlorothiazide [Lisinopril-Hctz 20-12.5 mg Tab] 1 tab PO DAILY 01/25/18 Atorvastatin Calcium [Lipitor 40 mg Tablet] 40 mg PO QHS #90 tablet 01/26/18 Metformin HCl [Glucophage 500 mg Tablet] 1,000 mg PO BIDACBS #180 tablet 01/26/18 Dapagliflozin Propanediol [Farxiga] 10 mg PO DAILY 10/06/20 Allergies/Adverse Reactions: No Known Allergies Allergy (Verified 10/06/20 16:08) Review of Systems Constitutional: ABSENT: fever(s), headache(s), night sweats, weakness Eyes: ABSENT: visual disturbances Ears: ABSENT: hearing changes Nose, Mouth, and Throat: ABSENT: mouth pain, sore throat Cardiovascular: ABSENT: orthropnea, palpitations Respiratory: ABSENT: dyspnea, hemoptysis Gastrointestinal: ABSENT: hematemesis, hematochezia Genitourinary: ABSENT: dysuria, hematuria Musculoskeletal: ABSENT: deformity, joint swelling Integumentary: ABSENT: pruritus Neurological: ABSENT: syncope, tingling, tremor(s), vertigo, weakness Endocrine: ABSENT: polydipsia, polyphagia, polyuria Hematologic/Lymphatic: ABSENT: easy bruising Physical Exam Vital Signs: Temp Pulse Resp BP Pulse Ox 97.7 F 91 20 133/61 H 96 10/07/20 10:54 10/07/20 10:54 10/07/20 10:40 10/07/20 10:54 10/07/20 10:15 Intake & Output 10/06/20 10/07/20 10/08/20 06:59 06:59 06:59 Intake Total 1000 0 Balance 1000 0 Weight 85.7 kg General appearance: PRESENT: no acute distress Head exam: PRESENT: atraumatic, normocephalic Eye exam: PRESENT: EOMI, PERRLA. ABSENT: nystagmus, scleral icterus Mouth exam: PRESENT: moist, neck supple Throat exam: ABSENT: tonsillar exudate, tonsillogmegaly Neck exam: ABSENT: meningismus, tenderness, thyromegaly Respiratory exam: PRESENT: symmetrical, unlabored. ABSENT: tachypnea, wheezes Cardiovascular exam: PRESENT: RRR, +S1, +S2 GI/Abdominal exam: PRESENT: soft. ABSENT: rebound, rigid, tenderness Extremities exam: ABSENT: joint swelling Neurological exam: PRESENT: oriented to time, oriented to situation, CN II-XII grossly intact Focused psych exam: ABSENT: restlessness Skin exam: PRESENT: normal color. ABSENT: mottled, pallor, urticaria, vesicles Results Laboratory Results: 10/07/20 03:27 10/07/20 03:27 10/06/20 10/06/20 10/06/20 16:45 16:45 16:45 WBC 7.3 RBC 4.50 Hgb 7.9 L Hct 25.9 L MCV 58 L MCH 17.7 L MCHC 30.7 L RDW 21.4 H Plt Count 495 H Seg Neutrophils % 62.7 Retic Count (auto) Carbonic Acid HCO3/H2CO3 Ratio ABG pH ABG pCO2 ABG pO2 ABG HCO3 ABG O2 Saturation ABG Base Excess FiO2 Sodium 139.2 Potassium 5.1 H Chloride 98 Carbon Dioxide 31 H Anion Gap 10 BUN 10 Creatinine 0.79 Est GFR ( Amer) > 60 Glucose 99 Calcium 10.4 H Phosphorus 3.4 Iron TIBC % Saturation Ferritin Total Bilirubin 0.5 AST 27 Alkaline Phosphatase 80 Ammonia Total Protein 8.7 H Albumin 4.4 Triglycerides Cholesterol LDL Cholesterol Direct VLDL Cholesterol HDL Cholesterol Amylase 77 Lipase 112.6 Vitamin B12 Folate TSH Free T4 Blood Type Antibody Screen 1210/06/20 10/06/20 16:45 16:45 18:54 WBC RBC Hgb Hct MCV MCH MCHC RDW Plt Count Seg Neutrophils % Retic Count (auto) Carbonic Acid HCO3/H2CO3 Ratio ABG pH ABG pCO2 ABG pO2 ABG HCO3 ABG O2 Saturation ABG Base Excess FiO2 Sodium Potassium Chloride Carbon Dioxide Anion Gap BUN Creatinine Est GFR ( Amer) Glucose Calcium Phosphorus Iron TIBC % Saturation Ferritin Total Bilirubin AST Alkaline Phosphatase Ammonia Total Protein Cancelled Albumin Cancelled Triglycerides Cholesterol LDL Cholesterol Direct VLDL Cholesterol HDL Cholesterol Amylase Lipase Vitamin B12 Folate TSH 0.91 Free T4 1.11 Blood Type A POSITIVE Antibody Screen NEGATIVE 10/06/20 10/06/20 10/06/20 18:57 20:00 20:00 WBC RBC Hgb Hct MCV MCH MCHC RDW Plt Count Seg Neutrophils % Retic Count (auto) 2.94 H Carbonic Acid 1.33 HCO3/H2CO3 Ratio 20:1 ABG pH 7.40 ABG pCO2 44.2 ABG pO2 80.8 ABG HCO3 26.8 H ABG O2 Saturation 95.9 ABG Base Excess 1.8 FiO2 ROOM AIR Sodium Potassium Chloride Carbon Dioxide Anion Gap BUN Creatinine Est GFR ( Amer) Glucose Calcium Phosphorus Iron 15.8 L TIBC 411 % Saturation 4 Ferritin 5.42 L Total Bilirubin AST Alkaline Phosphatase Ammonia Total Protein Albumin Triglycerides Cholesterol LDL Cholesterol Direct VLDL Cholesterol HDL Cholesterol Amylase Lipase Vitamin B12 390.0 Folate 6.29 TSH Free T4 Blood Type Antibody Screen 10/07/20 10/07/20 10/07/20 03:27 03:27 03:27 WBC 8.8 RBC 4.00 L Hgb 6.7 L Hct 22.5 L MCV 56 L MCH 16.8 L MCHC 29.9 L RDW 21.1 H Plt Count 426 Seg Neutrophils % 64.5 Retic Count (auto) Carbonic Acid HCO3/H2CO3 Ratio ABG pH ABG pCO2 ABG pO2 ABG HCO3 ABG O2 Saturation ABG Base Excess FiO2 Sodium 137.3 Potassium 4.6 Chloride 99 Carbon Dioxide 30 Anion Gap 8 BUN 11 Creatinine 0.70 Est GFR ( Amer) > 60 Glucose 106 Calcium 9.6 Phosphorus Iron TIBC % Saturation Ferritin Total Bilirubin 0.6 AST 25 Alkaline Phosphatase 70 Ammonia < 8.7 L Total Protein 7.1 Albumin 3.6 Triglycerides 154 H Cholesterol 135.83 LDL Cholesterol Direct 74 VLDL Cholesterol 30.8 HDL Cholesterol 20 L Amylase Lipase Vitamin B12 Folate TSH Free T4 Blood Type Antibody Screen 10/06/20 10/06/20 10/07/20 16:45 20:00 03:27 CK-MB (CK-2) 0.76 0.72 Troponin I < 0.012 < 0.012 NT-Pro-B Natriuret Pep 109 10/07/20 06:57 CK-MB (CK-2) 0.78 Troponin I < 0.012 NT-Pro-B Natriuret Pep Impressions: Chest/Abdomen CTA 10/06/20 16:16 IMPRESSION: Imaging is degraded by patient motion, with resultant artifact. The best possible images were obtained. Small pulmonary embolus left lung base. This is a small thrombus burden. No evidence of right heart strain. Chronic parenchymal lung change.. 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 ADDENDUM: Prior examination February 09, 2018 has been retrieved. The ascending thoracic aorta is stable. Chronic parenchymal lung changes are present previously. Assessment & Plan - Diagnosis (1) Iron deficiency anemia due to chronic blood loss Is this a current diagnosis for this admission?: Yes Plan: patient may have a potential malignancy causing a hypercoagulable state will need both EGD and colonoscopy patient will need to be on anticoagulation will perform procedures to include both EGD and colonoscopy prior to therapuetic state of anticoagulant therapy Risks, benefits and alternatives are discussed with the patient in detail further recommendations to follow - Time Time Spent: 50 to 70 Minutes
[2020-10-07] MEDS: INSULIN LISPRO 100 UNIT/ML 3 ML VIAL SUBCUT SCH ×4 (13:09→21:59)
[2020-10-07 14:21] LABS: PATH REVIEW PATHOLOGIST REVIEWED
--- NOTE | 2020-10-07 17:49 | PDOC PROGRESS REPORT ---
Subjective Date:: 10/07/20 Subjective:: Patient seen by the bedside, the hemoglobin is low,, 6.7, transfuse with 2 units of packed red blood cells, patient will require EGD and colonoscopy Reason For Visit: PULMONARY EMBOLISM, ASCENDING AORTIC ANEURSYM, Physical Exam Vital Signs: Temp Pulse Resp BP Pulse Ox 97.5 F 78 32 H 135/73 H 97 10/07/20 15:33 10/07/20 15:33 10/07/20 15:33 10/07/20 15:33 10/07/20 15:33 Intake & Output 10/06/20 10/07/20 10/08/20 06:59 06:59 06:59 Intake Total 1000 750 Balance 1000 750 Weight 85.7 kg General appearance: PRESENT: no acute distress Eye exam: PRESENT: PERRLA Respiratory exam: PRESENT: clear to auscultation maira Cardiovascular exam: PRESENT: +S1, +S2 GI/Abdominal exam: PRESENT: soft Neurological exam: PRESENT: alert Results Laboratory Results: 10/07/20 03:27 10/07/20 03:27 10/06/20 10/06/20 10/06/20 16:45 16:45 16:45 WBC 7.3 RBC 4.50 Hgb 7.9 L Hct 25.9 L MCV 58 L MCH 17.7 L MCHC 30.7 L RDW 21.4 H Plt Count 495 H Seg Neutrophils % 62.7 Retic Count (auto) Carbonic Acid HCO3/H2CO3 Ratio ABG pH ABG pCO2 ABG pO2 ABG HCO3 ABG O2 Saturation ABG Base Excess FiO2 Sodium 139.2 Potassium 5.1 H Chloride 98 Carbon Dioxide 31 H Anion Gap 10 BUN 10 Creatinine 0.79 Est GFR ( Amer) > 60 Glucose 99 Calcium 10.4 H Phosphorus 3.4 Iron TIBC % Saturation Ferritin Total Bilirubin 0.5 AST 27 Alkaline Phosphatase 80 Ammonia Total Protein 8.7 H Albumin 4.4 Triglycerides Cholesterol LDL Cholesterol Direct VLDL Cholesterol HDL Cholesterol Amylase 77 Lipase 112.6 Vitamin B12 Folate TSH Free T4 Blood Type Antibody Screen 10/06/20 10/06/20 10/06/20 16:45 16:45 18:54 WBC RBC Hgb Hct MCV MCH MCHC RDW Plt Count Seg Neutrophils % Retic Count (auto) Carbonic Acid HCO3/H2CO3 Ratio ABG pH ABG pCO2 ABG pO2 ABG HCO3 ABG O2 Saturation ABG Base Excess FiO2 Sodium Potassium Chloride Carbon Dioxide Anion Gap BUN Creatinine Est GFR ( Amer) Glucose Calcium Phosphorus Iron TIBC % Saturation Ferritin Total Bilirubin AST Alkaline Phosphatase Ammonia Total Protein Cancelled Albumin Cancelled Triglycerides Cholesterol LDL Cholesterol Direct VLDL Cholesterol HDL Cholesterol Amylase Lipase Vitamin B12 Folate TSH 0.91 Free T4 1.11 Blood Type A POSITIVE Antibody Screen NEGATIVE 10/06/20 10/06/20 10/06/20 18:57 20:00 20:00 WBC RBC Hgb Hct MCV MCH MCHC RDW Plt Count Seg Neutrophils % Retic Count (auto) 2.94 H Carbonic Acid 1.33 HCO3/H2CO3 Ratio 20:1 ABG pH 7.40 ABG pCO2 44.2 ABG pO2 80.8 ABG HCO3 26.8 H ABG O2 Saturation 95.9 ABG Base Excess 1.8 FiO2 ROOM AIR Sodium Potassium Chloride Carbon Dioxide Anion Gap BUN Creatinine Est GFR ( Amer) Glucose Calcium Phosphorus Iron 15.8 L TIBC 411 % Saturation 4 Ferritin 5.42 L Total Bilirubin AST Alkaline Phosphatase Ammonia Total Protein Albumin Triglycerides Cholesterol LDL Cholesterol Direct VLDL Cholesterol HDL Cholesterol Amylase Lipase Vitamin B12 390.0 Folate 6.29 TSH Free T4 Blood Type Antibody Screen 10/07/20 10/07/20 10/07/20 03:27 03:27 03:27 WBC 8.8 RBC 4.00 L Hgb 6.7 L Hct 22.5 L MCV 56 L MCH 16.8 L MCHC 29.9 L RDW 21.1 H Plt Count 426 Seg Neutrophils % 64.5 Retic Count (auto) Carbonic Acid HCO3/H2CO3 Ratio ABG pH ABG pCO2 ABG pO2 ABG HCO3 ABG O2 Saturation ABG Base Excess FiO2 Sodium 137.3 Potassium 4.6 Chloride 99 Carbon Dioxide 30 Anion Gap 8 BUN 11 Creatinine 0.70 Est GFR ( Amer) > 60 Glucose 106 Calcium 9.6 Phosphorus Iron TIBC % Saturation Ferritin Total Bilirubin 0.6 AST 25 Alkaline Phosphatase 70 Ammonia < 8.7 L Total Protein 7.1 Albumin 3.6 Triglycerides 154 H Cholesterol 135.83 LDL Cholesterol Direct 74 VLDL Cholesterol 30.8 HDL Cholesterol 20 L Amylase Lipase Vitamin B12 Folate TSH Free T4 Blood Type Antibody Screen 10/06/20 10/06/20 10/07/20 16:45 20:00 03:27 CK-MB (CK-2) 0.76 0.72 Troponin I < 0.012 < 0.012 NT-Pro-B Natriuret Pep 109 10/07/20 06:57 CK-MB (CK-2) 0.78 Troponin I < 0.012 NT-Pro-B Natriuret Pep Impressions: Chest/Abdomen CTA 10/06/20 16:16 IMPRESSION: Imaging is degraded by patient motion, with resultant artifact. The best possible images were obtained. Small pulmonary embolus left lung base. This is a small thrombus burden. No evidence of right heart strain. Chronic parenchymal lung change.. 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 ADDENDUM: Prior examination February 09, 2018 has been retrieved. The ascending thoracic aorta is stable. Chronic parenchymal lung changes are present previously. Assessment & Plan - Diagnosis (1) Pulmonary embolism Qualifiers: Pulmonary embolism type: unspecified Chronicity: acute Acute cor pulmonale presence: without acute cor pulmonale Qualified Code(s): I26.99 - Other pulmonary embolism without acute cor pulmonale Is this a current diagnosis for this admission?: Yes Plan: Patient with PE, continue Eliquis, may need to hold Eliquis tonight in anticipation of EGD and colonoscopy tomorrow (2) Iron deficiency anemia due to chronic blood loss Is this a current diagnosis for this admission?: Yes Plan: He has iron deficiency anemia suggesting chronic blood loss, he received a dose of Injectafer yesterday and also Blood transfusion (3) Type 2 diabetes mellitus with diabetic polyneuropathy Qualifiers: Diabetes mellitus half-way insulin use: without half-way use Qualified Code(s): E11.42 - Type 2 diabetes mellitus with diabetic polyneuropathy Is this a current diagnosis for this admission?: Yes Plan: Well-controlled (4) COPD (chronic obstructive pulmonary disease) Qualifiers: COPD type: emphysema Emphysema type: unspecified Qualified Code(s): J43.9 - Emphysema, unspecified Is this a current diagnosis for this admission?: Yes Plan: Start Trelegy - Time Time Spent with patient: 35 or more minutes Level of Care: IMCU Medications reviewed and adjusted accordingly: Yes Anticipated discharge: Home Anticipated DC Timeframe: within 24 hours - Inpatient Certification Based on my medical assessment, after consideration of the patient's comorbidities, presenting symptoms, or acuity I expect that the services needed warrant INPATIENT care.: Yes I certify that my determination is in accordance with my understanding of Medicare's requirements for reasonable and necessary INPATIENT services [42 CFR 412.3e].: Yes
[2020-10-07 20:37] LABS: ABSOLUTE BASOPHILS # (AUTO) 0.1 10^3/uL (0.0-0.2); ABSOLUTE LYMPHOCYTES (AUTO) 1.9 10^3/uL (0.5-4.7); ABSOLUTE MONOCYTES (AUTO) 1.1 10^3/uL (0.1-1.4); ABSOLUTE NEUT (AUTO) 4.5 10^3/uL (1.7-8.2); BASOPHILS % (AUTO) 0.8 % (0-2); EOSINOPHILS % (AUTO) 0.6 % (0-6); HEMATOCRIT 27.5 % (37.9-51.0); HEMOGLOBIN 8.6 g/dL (13.5-17.0); LYMPHOCYTES % (AUTO) 24.3 % (13-45); MEAN CORPUSCULAR HEMOGLOBIN 19.1 pg (27.0-33.4); MEAN CORPUSCULAR HGB CONC 31.2 g/dL (32.0-36.0); PLATELET COUNT 399 10^3/uL (150-450); RED BLOOD COUNT 4.51 10^6/uL (4.35-5.55); RED CELL DISTRIBUTION WIDTH 27.2 % (11.5-14.0); SEGMENTED NEUTROPHILS % (AUTO) 59.3 % (42-78); TOTAL CELLS COUNTED % (AUTO) 100 %; WHITE BLOOD COUNT 7.6 10^3/uL (4.0-10.5)
[2020-10-07 20:58] LABS: MEAN CORPUSCULAR VOLUME 61 fl (80-97)
[2020-10-07 21:00] LABS: ANISOCYTOSIS 3+; HYPOCHROMASIA 3+; OVALOCYTES 2+; PLATELET COMMENT ADEQUATE; POLYCHROMASIA SLIGHT; TARGET CELLS 1+
[2020-10-07] MEDS: ATORVASTATIN CALCIUM 40 MG TABLET PO SCH (22:02)
[2020-10-07] MEDS: FLUTICASONE/UMECLIDIN/VILANTER 100-62.5-25 MCG/DOSE IH SCH (22:03)
[2020-10-08 07:16] LABS: ABSOLUTE BASOPHILS # (AUTO) 0.1 10^3/uL (0.0-0.2); ABSOLUTE LYMPHOCYTES (AUTO) 1.5 10^3/uL (0.5-4.7); ABSOLUTE NEUT (AUTO) 6.5 10^3/uL (1.7-8.2); BASOPHILS % (AUTO) 0.7 % (0-2); EOSINOPHILS % (AUTO) 0.5 % (0-6); HEMATOCRIT 28.9 % (37.9-51.0); LYMPHOCYTES % (AUTO) 16.6 % (13-45); MEAN CORPUSCULAR HEMOGLOBIN 19.1 pg (27.0-33.4); MEAN CORPUSCULAR HGB CONC 31.1 g/dL (32.0-36.0); MEAN CORPUSCULAR VOLUME 62 fl (80-97); MONOCYTES % (AUTO) 11.2 % (3-13); PLATELET COUNT 397 10^3/uL (150-450); RED CELL DISTRIBUTION WIDTH 26.6 % (11.5-14.0); TOTAL CELLS COUNTED % (AUTO) 100 %; WHITE BLOOD COUNT 9.2 10^3/uL (4.0-10.5)
[2020-10-08] MEDS: INSULIN LISPRO 100 UNIT/ML 3 ML VIAL SUBCUT SCH ×4 (07:41→22:44)
[2020-10-08] MEDS: IPRATROPIUM/ALBUTEROL 0.5-2.5 MG/3 ML AMPUL NEB PRN (08:16)
[2020-10-08 08:32] LABS: ANISOCYTOSIS 3+
[2020-10-08 08:33] LABS: OVALOCYTES 3+; POIKILOCYTOSIS 3+; POLYCHROMASIA 3+
[2020-10-08 08:34] LABS: TARGET CELLS 2+; TEAR DROP CELLS 2+
[2020-10-08 08:35] LABS: PLATELET COMMENT ADEQUATE
[2020-10-08 08:37] LABS: HYPOCHROMASIA 3+
[2020-10-08] MEDS: LISINOPRIL 10 MG TABLET PO SCH (09:04)
[2020-10-08] MEDS: HYDROCHLOROTHIAZIDE 12.5 MG TABLET PO SCH (09:04)
[2020-10-08] MEDS: FLUTICASONE/UMECLIDIN/VILANTER 100-62.5-25 MCG/DOSE IH SCH (09:05)
[2020-10-08] MEDS ORDERED: FERRIC CARBOXYMALTOSE 750 MG in NORMAL SALINE 250 ML IV ONE (11:00)
[2020-10-08] MEDS ORDERED: LIDOCAINE 2% INJ-PF (20 MG/ML) 2 ML AMPUL ONE (11:04)
[2020-10-08] MEDS ORDERED: MIDAZOLAM 2 MG/2 ML INJ ONE (11:58)
[2020-10-08] MEDS ORDERED: KETAMINE HCL INJ 500 MG/10 ML VIAL ONE (11:58)
[2020-10-08] MEDS: APIXABAN 5 MG TABLET PO SCH ×2 (14:08→21:10)
--- NOTE | 2020-10-08 14:12 | Operative Report ---
Operative Report DATE OF SURGERY: 10/08/20 Operative Report: The risk, benefits and alternatives of the procedure including the risk of bleeding, perforation requiring surgery have been explained to the patient in detail and informed consent has been obtained. Patient is taken to the operating room placed in a left, lateral decubital position. Timeout was called. Propofol medication is administered. Rectal examination is done which did not reveal any masses, tears or fissures. An Olympus videoscope was introdu alicia into the patient's rectum. Scope was then carefully advanced all the way to the cecum. Cecum was identified by the usual anatomical landmarks including the ileocecal valve as well as the appendiceal office. Photodocumentation is obtained. Scope was then sequentially pulled back via the various segments of the colon including the ascending colon, hepatic flexure, transverse colon, splenic flexure, descending colon finally in to the rectosigmoid portions of the colon. Retroflexion maneuver is performed. The risks benefits and alternatives of the procedure explained to the patient in detail and informed consent is obtained.A GIF Olympus video scope was inserted into the patient's mouth and hypopharynx ,the esophagus is identified intubated and insufflated. the scope was then advanced through the esophagus stomach and duodenum, retroflexion maneuver is done ,the esophagus stomach and first and second portions of the duodenum examined PREOPERATIVE DIAGNOSIS: Anemia, weight loss POSTOPERATIVE DIAGNOSIS: Right colon inflammation status post biopsy. Internal hemorrhoids, diverticulosis. Gastritis status post biopsy without Helicobacter pylori OPERATION: Colonoscopy biopsy. EGD with biopsy SURGEON: REINA GRAYSON ANESTHESIA: LMAC TISSUE REMOVED OR ALTERED: As noted above. COMPLICATIONS: None. ESTIMATED BLOOD LOSS: None. INTRAOPERATIVE FINDINGS: As noted above. PROCEDURE: Patient tolerated the procedure well. No immediate postprocedure complications are noted. Patient is sent back to his room in good condition. We will wait on biopsies. Resume previous diet as tolerated resume previous activity level Should be safe for anticoagulation is no obvious cause of bleeding is noted. We will wait on biopsies See as outpatient
--- NOTE | 2020-10-08 20:36 | PDOC PROGRESS REPORT ---
Subjective Date:: 10/08/20 Subjective:: Patient was seen by the bedside, he underwent colonoscopy and upper endoscopy to day no significant lesion to explain iron deficiency anemia. Patient was not able to urinate today, on reexamination he has a huge prostate gland, a Bell catheter was inserted Reason For Visit: PULMONARY EMBOLISM, ASCENDING AORTIC ANEURSYM, Physical Exam Vital Signs: Temp Pulse Resp BP Pulse Ox 97.5 F 98 20 160/83 H 95 10/08/20 16:05 10/08/20 18:59 10/08/20 16:05 10/08/20 16:05 10/08/20 16:05 Intake & Output 10/07/20 10/08/20 10/09/20 06:59 06:59 06:59 Intake Total 1000 3440 1035 Output Total 500 Balance 1000 2940 1035 Weight 85.7 kg 85.7 kg 85.7 kg General appearance: PRESENT: no acute distress Eye exam: PRESENT: PERRLA Respiratory exam: PRESENT: clear to auscultation maira Cardiovascular exam: PRESENT: +S1, +S2 GI/Abdominal exam: PRESENT: soft Rectal exam: PRESENT: prostate enlargement Neurological exam: PRESENT: alert Results Laboratory Results: 10/08/20 06:11 10/07/20 03:27 10/07/20 10/08/20 20:23 06:11 WBC 7.6 9.2 RBC 4.51 4.70 Hgb 8.6 L 9.0 L Hct 27.5 L 28.9 L MCV 61 L D 62 L MCH 19.1 L 19.1 L MCHC 31.2 L 31.1 L RDW 27.2 H 26.6 H Plt Count 399 397 Seg Neutrophils % 59.3 71.0 10/06/20 16:50 Clean Catch Midstream Urine Culture - Final NO GROWTH 2 DAYS 10/06/20 10/06/20 10/07/20 16:45 20:00 03:27 CK-MB (CK-2) 0.76 0.72 Troponin I < 0.012 < 0.012 NT-Pro-B Natriuret Pep 109 10/07/20 06:57 CK-MB (CK-2) 0.78 Troponin I < 0.012 NT-Pro-B Natriuret Pep Impressions: Chest/Abdomen CTA 10/06/20 16:16 IMPRESSION: Imaging is degraded by patient motion, with resultant artifact. The best possible images were obtained. Small pulmonary embolus left lung base. This is a small thrombus burden. No evidence of right heart strain. Chronic parenchymal lung change.. 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 ADDENDUM: Prior examination February 09, 2018 has been retrieved. The ascending thoracic aorta is stable. Chronic parenchymal lung changes are present previously. Assessment & Plan - Diagnosis (1) Pulmonary embolism Qualifiers: Pulmonary embolism type: unspecified Chronicity: acute Acute cor pulmonale presence: without acute cor pulmonale Qualified Code(s): I26.99 - Other pulmonary embolism without acute cor pulmonale Is this a current diagnosis for this admission?: Yes Plan: Patient will continue Eliquis 5 mg p.o. twice daily for PE (2) Iron deficiency anemia due to chronic blood loss Is this a current diagnosis for this admission?: Yes Plan: Status post blood transfusion and iron infusion (3) Type 2 diabetes mellitus with diabetic polyneuropathy Qualifiers: Diabetes mellitus oysterman insulin use: without oysterman use Qualified Code(s): E11.42 - Type 2 diabetes mellitus with diabetic polyneuropathy Is this a current diagnosis for this admission?: Yes (4) COPD (chronic obstructive pulmonary disease) Qualifiers: COPD type: emphysema Emphysema type: unspecified Qualified Code(s): J43.9 - Emphysema, unspecified Is this a current diagnosis for this admission?: Yes Plan: Continue Trelegy (5) BPH with obstruction/lower urinary tract symptoms Is this a current diagnosis for this admission?: Yes Plan: He has a huge prostate gland with urinary obstruction, start Flomax, finasteride, insert urinary catheter,? Prostate cancer check PSA - Time Time Spent with patient: 35 or more minutes Level of Care: IMCU Anticipated discharge: Home Anticipated DC Timeframe: Other - Inpatient Certification Based on my medical assessment, after consideration of the patient's comorbidities, presenting symptoms, or acuity I expect that the services needed warrant INPATIENT care.: Yes I certify that my determination is in accordance with my understanding of Medicare's requirements for reasonable and necessary INPATIENT services [42 CFR 412.3e].: Yes
[2020-10-08] MEDS: FINASTERIDE 5 MG TABLET PO SCH (21:10)
[2020-10-08] MEDS: TAMSULOSIN HCL 0.4 MG CAP.SR.24H PO SCH (21:10)
[2020-10-08] MEDS: ATORVASTATIN CALCIUM 40 MG TABLET PO SCH (21:10)
[2020-10-09 07:10] LABS: ABSOLUTE EOSINOPHILS # (AUTO) 0.1 10^3/uL (0.0-0.6); ABSOLUTE LYMPHOCYTES (AUTO) 1.5 10^3/uL (0.5-4.7); ABSOLUTE MONOCYTES (AUTO) 1.3 10^3/uL (0.1-1.4); ABSOLUTE NEUT (AUTO) 6.6 10^3/uL (1.7-8.2); BASOPHILS % (AUTO) 0.4 % (0-2); EOSINOPHILS % (AUTO) 0.6 % (0-6); HEMATOCRIT 27.3 % (37.9-51.0); HEMOGLOBIN 8.5 g/dL (13.5-17.0); MEAN CORPUSCULAR HEMOGLOBIN 19.1 pg (27.0-33.4); MEAN CORPUSCULAR HGB CONC 31.3 g/dL (32.0-36.0); MEAN CORPUSCULAR VOLUME 61 fl (80-97); MONOCYTES % (AUTO) 13.7 % (3-13); PLATELET COUNT 379 10^3/uL (150-450); RED BLOOD COUNT 4.47 10^6/uL (4.35-5.55); RED CELL DISTRIBUTION WIDTH 27.1 % (11.5-14.0); SEGMENTED NEUTROPHILS % (AUTO) 69.3 % (42-78); TOTAL CELLS COUNTED % (AUTO) 100 %; WHITE BLOOD COUNT 9.5 10^3/uL (4.0-10.5)
[2020-10-09] MEDS: INSULIN LISPRO 100 UNIT/ML 3 ML VIAL SUBCUT SCH ×4 (07:35→22:28)
[2020-10-09 07:46] LABS: ANISOCYTOSIS 3+; OVALOCYTES 1+; PLATELET COMMENT ADEQUATE; POIKILOCYTOSIS 1+; POLYCHROMASIA SLIGHT
[2020-10-09] MEDS: HYDROCHLOROTHIAZIDE 12.5 MG TABLET PO SCH (09:44)
[2020-10-09] MEDS: APIXABAN 5 MG TABLET PO SCH ×2 (09:45→22:31)
[2020-10-09] MEDS: LISINOPRIL 10 MG TABLET PO SCH (09:45)
[2020-10-09] MEDS: FINASTERIDE 5 MG TABLET PO SCH (09:45)
[2020-10-09] MEDS: FLUTICASONE/UMECLIDIN/VILANTER 100-62.5-25 MCG/DOSE IH SCH (09:46)
[2020-10-09 16:37] LABS: ALBUMIN UR 39.5 % (.); ALPHA-1-GLOBULIN URINE 0.4 % (.); ALPHA-2-GLOBULIN URINE 18.8 % (.); GAMMA GLOBULIN URINE 17.4 % (.); M-SPIKE % UR Not Observed % (Not Observ); PROTEIN TOTAL URINE 45.2 mg/dL (Not Estab.)
[2020-10-09 16:37] LABS: A/G RATIO. 0.9 (0.7-1.7); ALBUMIN 3 3.4 g/dL (2.9-4.4); ALPHA-1-GLOBULIN 0.3 g/dL (0.0-0.4); BETA GLOBULIN 1.4 g/dL (0.7-1.3); GAMMA GLOBULINS 1.6 g/dL (0.4-1.8); IMMUNOGLOBULIN A 425 mg/dL (61-437); IMMUNOGLOBULIN G 1650 mg/dL (603-1613); IMMUNOGLOBULIN M 157 mg/dL (15-143); MONOCLONAL-SPIKE Not Observed g/dL (Not Observ); PROTEIN TOTAL SERUM 7.3 g/dL (6.0-8.5)
[2020-10-09] MEDS: TAMSULOSIN HCL 0.4 MG CAP.SR.24H PO SCH (17:18)
--- NOTE | 2020-10-09 21:10 | PDOC PROGRESS REPORT ---
Subjective Date:: 10/09/20 Subjective:: Patient was seen by the bedside, he underwent colonoscopy and upper endoscopy to day no significant lesion to explain iron deficiency anemia. Patient was not able to urinate today, on reexamination he has a huge prostate gland, a Bell catheter was inserted 10/09/2020 Patient was seen by the bedside, he feels better, is making urine, Yesterday on rectal examination was found to have very large prostate gland PSA is pending, he was started on Flomax and finasteride Reason For Visit: PULMONARY EMBOLISM, ASCENDING AORTIC ANEURSYM, Physical Exam Vital Signs: Temp Pulse Resp BP Pulse Ox 98.1 F 92 16 103/65 98 10/09/20 16:20 10/09/20 16:20 10/09/20 16:20 10/09/20 16:20 10/09/20 16:20 Intake & Output 10/08/20 10/09/20 10/10/20 06:59 06:59 06:59 Intake Total 3440 1535 900 Output Total 500 625 625 Balance 2940 910 275 Weight 85.7 kg 85.8 kg 85.8 kg General appearance: PRESENT: no acute distress Eye exam: PRESENT: PERRLA Respiratory exam: PRESENT: clear to auscultation maira Cardiovascular exam: PRESENT: +S1, +S2 GI/Abdominal exam: PRESENT: soft Neurological exam: PRESENT: alert Results Laboratory Results: 10/09/20 05:32 10/07/20 03:27 10/09/20 05:32 WBC 9.5 RBC 4.47 Hgb 8.5 L Hct 27.3 L MCV 61 L MCH 19.1 L MCHC 31.3 L RDW 27.1 H Plt Count 379 Seg Neutrophils % 69.3 10/06/20 18:17 Blood Blood Culture - Final Staphylococcus Hominis 10/06/20 10/06/20 10/07/20 16:45 20:00 03:27 CK-MB (CK-2) 0.76 0.72 Troponin I < 0.012 < 0.012 NT-Pro-B Natriuret Pep 109 10/07/20 06:57 CK-MB (CK-2) 0.78 Troponin I < 0.012 NT-Pro-B Natriuret Pep Impressions: Chest/Abdomen CTA 10/06/20 16:16 IMPRESSION: Imaging is degraded by patient motion, with resultant artifact. The best possible images were obtained. Small pulmonary embolus left lung base. This is a small thrombus burden. No evidence of right heart strain. Chronic parenchymal lung change.. 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 ADDENDUM: Prior examination February 09, 2018 has been retrieved. The ascending thoracic aorta is stable. Chronic parenchymal lung changes are present previously. Assessment & Plan - Diagnosis (1) Pulmonary embolism Qualifiers: Pulmonary embolism type: unspecified Chronicity: acute Acute cor pulmonale presence: without acute cor pulmonale Qualified Code(s): I26.99 - Other pulmonary embolism without acute cor pulmonale Is this a current diagnosis for this admission?: Yes Plan: Patient will continue Eliquis 10 mg p.o. twice daily for PE for 7 days and then 5mg po bid (2) Iron deficiency anemia due to chronic blood loss Is this a current diagnosis for this admission?: Yes Plan: He received a dose of Injectafer, to receive second dose in 7 days outpatient (3) Type 2 diabetes mellitus with diabetic polyneuropathy Qualifiers: Diabetes mellitus shelter insulin use: without vermin exterminator use Qualified Code(s): E11.42 - Type 2 diabetes mellitus with diabetic polyneuropathy Is this a current diagnosis for this admission?: Yes (4) COPD (chronic obstructive pulmonary disease) Qualifiers: COPD type: emphysema Emphysema type: unspecified Qualified Code(s): J43.9 - Emphysema, unspecified Is this a current diagnosis for this admission?: Yes Plan: Continue Trelegy (5) BPH with obstruction/lower urinary tract symptoms Is this a current diagnosis for this admission?: Yes Plan: He has a huge prostate gland with urinary obstruction, continue Flomax, finasteride, ? Prostate cancer check PSA (6) Ascending aortic aneurysm Is this a current diagnosis for this admission?: Yes Plan: There is no evidence of dissection - Time Time Spent with patient: 35 or more minutes Level of Care: IMCU Medications reviewed and adjusted accordingly: Yes Anticipated discharge: Home Anticipated DC Timeframe: within 24 hours
[2020-10-09] MEDS: ATORVASTATIN CALCIUM 40 MG TABLET PO SCH (22:31)
[2020-10-10 06:38] LABS: APPEARANCE,URINE CLEAR; BILIRUBIN,URINE NEGATIVE (NEGATIVE); COLOR,URINE YELLOW; GLUCOSE, URINE NEGATIVE (NEGATIVE); KETONES,URINE NEGATIVE (NEGATIVE); PROTEIN,URINE NEGATIVE (NEGATIVE); URINE SPECIFIC GRAVITY 1.009; UROBILINOGEN,URINE NEGATIVE mg/dL (<2.0)
[2020-10-10 06:51] LABS: URINE AMPHETAMINES SCREEN NEGATIVE; URINE BARBITURATES SCREEN NEGATIVE; URINE BENZODIAZEPINES SCREEN NEGATIVE; URINE COCAINE SCREEN NEGATIVE; URINE MARIJUANA (THC) SCREEN NEGATIVE; URINE METHADONE SCREEN NEGATIVE; URINE PHENCYCLIDINE SCREEN NEGATIVE
[2020-10-10] MEDS: INSULIN LISPRO 100 UNIT/ML 3 ML VIAL SUBCUT SCH ×3 (08:41→16:11)
[2020-10-10] MEDS: APIXABAN 5 MG TABLET PO SCH (09:27)
[2020-10-10] MEDS: HYDROCHLOROTHIAZIDE 12.5 MG TABLET PO SCH (09:28)
[2020-10-10] MEDS: FINASTERIDE 5 MG TABLET PO SCH (09:28)
[2020-10-10] MEDS: FLUTICASONE/UMECLIDIN/VILANTER 100-62.5-25 MCG/DOSE IH SCH (09:28)
[2020-10-10] MEDS: LISINOPRIL 10 MG TABLET PO SCH (09:28)
[2020-10-10 15:54] LABS: PROSTATE SPECIFIC ANTIGEN 5.2 ng/mL (0.0-4.0); PSA % FREE 20.8 % (.); PSA FREE 1.08 ng/mL
[2020-10-10 16:13] VITALS: BP 135/86
--- NOTE | 2020-10-10 16:40 | PDOC DISCHARGE SUMMARY ---
Impression - Admit/DC Date/PCP Admission Date/Primary Care Provider: 10/06/20 18:28 RON GIBSON MD Discharge Date: 10/10/20 - Discharge Diagnosis (1) Pulmonary embolism Is this a current diagnosis for this admission?: Yes (2) Iron deficiency anemia due to chronic blood loss Is this a current diagnosis for this admission?: Yes (3) Type 2 diabetes mellitus with diabetic polyneuropathy Is this a current diagnosis for this admission?: Yes (4) COPD (chronic obstructive pulmonary disease) Is this a current diagnosis for this admission?: Yes (5) BPH with obstruction/lower urinary tract symptoms Is this a current diagnosis for this admission?: Yes (6) Ascending aortic aneurysm Is this a current diagnosis for this admission?: Yes - Additional Information Resuscitation Status: Full Code Referrals: RON GIBSON MD [Primary Care Provider] - 10/19/20 2:00 pm Prescriptions: Apixaban [Eliquis 5 mg Tablet] 5 mg PO Q12 #180 tablet Dapagliflozin Propanediol [Farxiga] 10 mg PO DAILY #90 Tamsulosin HCl [Flomax 0.4 mg Cap.sr] 0.8 mg PO PCSUPPER #90 cap.sr.24h Finasteride [Proscar 5 mg Tablet] 5 mg PO DAILY #90 tablet Fluticasone/Umeclidin/Vilanter [Trelegy 100-62.5-25 Mcg Ellipta 14 Dose/Dpi] 1 inh IH DAILY #6 inhaler Home Medications: Lisinopril/Hydrochlorothiazide [Lisinopril-Hctz 20-12.5 mg Tab] 1 tab PO DAILY 01/25/18 Atorvastatin Calcium [Lipitor 40 mg Tablet] 40 mg PO QHS #90 tablet 01/26/18 Metformin HCl [Glucophage 500 mg Tablet] 1,000 mg PO BIDACBS #180 tablet 01/26/18 Apixaban [Eliquis 5 mg Tablet] 5 mg PO Q12 #180 tablet 10/10/20 Dapagliflozin Propanediol [Farxiga] 10 mg PO DAILY #90 10/10/20 Finasteride [Proscar 5 mg Tablet] 5 mg PO DAILY #90 tablet 10/10/20 Fluticasone/Umeclidin/Vilanter [Trelegy 100-62.5-25 Mcg Ellipta 14 Dose/Dpi] 1 inh IH DAILY #6 inhaler 10/10/20 Ipratropium/Albuterol Sulfate [Duoneb 3 ml Ampul] 3 ml NEB RTQ3HP PRN vial.neb 10/10/20 Tamsulosin HCl [Flomax 0.4 mg Cap.sr] 0.8 mg PO PCSUPPER #90 cap.sr.24h 10/10/20 History of Present Illiness History of Present Illness: PEPE KUO is a 70 year old male, He came to the office today for evaluation of shortness of breath, fatigue, excessive somnolence. In the office he was pale looking, on auscultation of his chest there was prolonged expiratory phase of respiration. Patient is an avid smoker, he was also found to have tachycardia in the office, I suspect pulmonary embolism and also anemia I felt the best plan of care will be inpatient evaluation he was admitted directly from the office into the hospital. CT angiogram of the chest was done demonstrated embolus in the left lower lobe posterior segment, the blood work demonstrated anemia with microcytic anemia hemoglobin of 7.8.. The iron indices is low consistent with iron deficiency anemia suggesting chronic blood loss probably from GI tract, patient will need GI endoscopy, the last office visit was in December, His weight was 200 pounds at the time the weight today is 186 pounds, He has unintentional weight loss. Hospital Course Hospital Course: Patient was admitted for the management of pulmonary embolism, iron deficiency anemia, ascending aortic aneurysm, COPD, BPH with urinary retention. Pulmonary embolism patient presented with shortness of breath, CTA of the chest was obtained it demonstrated pulmonary embolus the right lower lobe. He was treated with Eliquis 10 mg p.o. twice daily, loading dose, is being discharged home on 5 mg p.o. twice daily.Patient tolerated the anticoagulant without any complications. Ascending aortic aneurysmThe CAT scan angiogram of the chest that was done demonstrated aneurysm of the ascending aorta, measures 4 cm no dissection, this was accidental finding Enlarged prostate with urinary retention, Patient complained of difficulty urinating, a digital rectal examination was done was found to have very large prostate gland could not get above with, he was started on finasteride 5 mg p.o. daily tamsulosin 0.8 mg p.o. daily, PSA was ordered result pending, cannot completely rule out cancer he will need urologic outpatient follow-up Iron deficiency anemia, he has iron deficiency anemia he was transfused with red blood cells he was seen consultation by Dr. Galvez he underwent EGD and colonoscopy was found to have gastritis no mass lesion found, he also received a dose of Injectafer , He will receive second dose in 7 Ddays Chronic obstructive pulmonary disease, He has underlying COPD he was started on Trelegy inhaler Physical Exam Vital Signs: Temp Pulse Resp BP Pulse Ox 97.5 F 83 25 H 135/86 H 100 10/10/20 15:55 10/10/20 15:55 10/10/20 15:55 10/10/20 15:55 10/10/20 15:55 Intake & Output 10/09/20 10/10/20 10/11/20 06:59 06:59 06:59 Intake Total 1535 2240 510 Output Total 625 1650 1175 Balance 910 590 -665 Weight 85.8 kg 80.6 kg General appearance: PRESENT: no acute distress Eye exam: PRESENT: PERRLA Respiratory exam: PRESENT: clear to auscultation maira Cardiovascular exam: PRESENT: +S1 Neurological exam: PRESENT: alert, CN II-XII grossly intact Results Laboratory Results: WBC 9.5 10^3/uL (4.0-10.5) 10/09/20 05:32 RBC 4.47 10^6/uL (4.35-5.55) 10/09/20 05:32 Hgb 8.5 g/dL (13.5-17.0) L 10/09/20 05:32 Hct 27.3 % (37.9-51.0) L 10/09/20 05:32 MCV 61 fl (80-97) L 10/09/20 05:32 MCH 19.1 pg (27.0-33.4) L 10/09/20 05:32 MCHC 31.3 g/dL (32.0-36.0) L 10/09/20 05:32 RDW 27.1 % (11.5-14.0) H 10/09/20 05:32 Plt Count 379 10^3/uL (150-450) 10/09/20 05:32 Lymph % (Auto) 16.0 % (13-45) 10/09/20 05:32 [place] % (Auto) 13.7 % (3-13) H 10/09/20 05:32 Eos % (Auto) 0.6 % (0-6) 10/09/20 05:32 Baso % (Auto) 0.4 % (0-2) 10/09/20 05:32 Reticulocyte # 0.125 10^6/uL (0.028-0.122) H 10/06/20 20:00 Absolute Neuts (auto) 6.6 10^3/uL (1.7-8.2) 10/09/20 05:32 Absolute Lymphs (auto) 1.5 10^3/uL (0.5-4.7) 10/09/20 05:32 Absolute Monos (auto) 1.3 10^3/uL (0.1-1.4) 10/09/20 05:32 Absolute Eos (auto) 0.1 10^3/uL (0.0-0.6) 10/09/20 05:32 Absolute Basos (auto) 0.0 10^3/uL (0.0-0.2) 10/09/20 05:32 Seg Neutrophils % 69.3 % (42-78) 10/09/20 05:32 Platelet Comment ADEQUATE 10/09/20 05:32 Polychromasia SLIGHT 10/09/20 05:32 Hypochromasia 3+ 10/08/20 06:11 Poikilocytosis 1+ 10/09/20 05:32 Basophilic Stippling PRESENT 10/08/20 06:11 Anisocytosis 3+ 10/09/20 05:32 Microcytosis 3+ 10/08/20 06:11 Target Cells 2+ 10/08/20 06:11 Tear Drop Cells 2+ 10/08/20 06:11 Ovalocytes 1+ 10/09/20 05:32 Retic Count (auto) 2.94 % (0.66-2.85) H 10/06/20 20:00 PT 15.1 SEC (11.4-15.4) 10/06/20 20:00 INR 1.17 10/06/20 20:00 APTT 35.7 SEC (23.5-35.8) 10/06/20 20:00 Carbonic Acid 1.33 mmol/L (1.05-1.35) 10/06/20 18:57 HCO3/H2CO3 Ratio 20:1 10/06/20 18:57 ABG pH 7.40 (7.35-7.45) 10/06/20 18:57 ABG pCO2 44.2 mmHg (35-45) 10/06/20 18:57 ABG pO2 80.8 mmHg (80-100) 10/06/20 18:57 ABG HCO3 26.8 mmol/L (20-24) H 10/06/20 18:57 ABG Total CO2 28.2 mmol/L (23-27) H 10/06/20 18:57 ABG O2 Saturation 95.9 % (94-98) 10/06/20 18:57 ABG Base Excess 1.8 mmol/L 10/06/20 18:57 FiO2 ROOM AIR 10/06/20 18:57 Sodium 137.3 mmol/L (137-145) 10/07/20 03:27 Potassium 4.6 mmol/L (3.6-5.0) 10/07/20 03:27 Chloride 99 mmol/L (98-107) 10/07/20 03:27 Carbon Dioxide 30 mmol/L (22-30) 10/07/20 03:27 Anion Gap 8 (5-19) 10/07/20 03:27 BUN 11 mg/dL (7-20) 10/07/20 03:27 Creatinine 0.70 mg/dL (0.52-1.25) 10/07/20 03:27 Est GFR ( Amer) > 60 (>60) 10/07/20 03:27 Est GFR (MDRD) Non-Af > 60 (>60) 10/07/20 03:27 Glucose 106 mg/dL (75-110) 10/07/20 03:27 POC Glucose 139 mg/dL (70-110) H 10/10/20 15:55 Hemoglobin A1c % 5.7 % (4.7-6.0) 10/06/20 16:45 Calcium 9.6 mg/dL (8.4-10.2) 10/07/20 03:27 Phosphorus 3.4 mg/dL (2.5-4.5) 10/06/20 16:45 Iron 15.8 ug/dL (49-181) L 10/06/20 20:00 TIBC 411 ug/dL (250-450) 10/06/20 20:00 % Saturation 4 % 10/06/20 20:00 Ferritin 5.42 ng/mL (17.9-464.0) L 10/06/20 20:00 Total Bilirubin 0.6 mg/dL (0.2-1.3) 10/07/20 03:27 Direct Bilirubin 0.2 mg/dL (0.0-0.4) 10/07/20 03:27 Neonat Total Bilirubin Not Reportable 10/07/20 03:27 Neonat Direct Bilirubin Not Reportable 10/07/20 03:27 Neonat Indirect Bili Not Reportable 10/07/20 03:27 AST 25 U/L (17-59) 10/07/20 03:27 ALT 23 U/L (<50) 10/07/20 03:27 Alkaline Phosphatase 70 U/L (38-126) 10/07/20 03:27 Ammonia < 8.7 umol/L (9-33) L 10/07/20 03:27 CK-MB (CK-2) 0.78 ng/mL (<4.55) 10/07/20 06:57 Troponin I < 0.012 ng/mL 10/07/20 06:57 NT-Pro-B Natriuret Pep 109 pg/mL (<125) 10/06/20 16:45 Total Protein 7.1 g/dL (6.3-8.2) 10/07/20 03:27 Albumin 3.6 g/dL (3.5-5.0) 10/07/20 03:27 Globulin 3.9 g/dL (2.2-3.9) 10/06/20 16:45 Globulin Cancelled 10/06/20 16:45 Albumin/Globulin Ratio Cancelled 10/06/20 16:45 Alb/Glob Ratio Alt Meth 0.9 (0.7-1.7) 10/06/20 16:45 Vogax-6-Botrvyaeo 0.3 g/dL (0.0-0.4) 10/06/20 16:45 Ffumk-1-Kxywvsbqs Cancelled 10/06/20 16:45 Yowfs-7-Osrxhexgx 0.7 g/dL (0.4-1.0) 10/06/20 16:45 Beta Globulins 1.4 g/dL (0.7-1.3) H 10/06/20 16:45 Beta Globulins Cancelled 10/06/20 16:45 Gamma Globulins 1.6 g/dL (0.4-1.8) 10/06/20 16:45 Gamma Globulins Cancelled 10/06/20 16:45 M-Rell Cancelled 10/06/20 16:45 M-Rell Not Observed g/dL (Not Observ) 10/06/20 16:45 PEP Note Cancelled 10/06/20 16:45 PEP Interpretation Cancelled 10/06/20 16:45 Triglycerides 154 mg/dL (<150) H 10/07/20 03:27 Cholesterol 135.83 mg/dL (0-200) 10/07/20 03:27 LDL Cholesterol Direct 74 mg/dL (<100) 10/07/20 03:27 VLDL Cholesterol 30.8 mg/dL (10-31) 10/07/20 03:27 HDL Cholesterol 20 mg/dL (>40) L 10/07/20 03:27 Amylase 77 U/L (30-110) 10/06/20 16:45 Lipase 112.6 U/L (23-300) 10/06/20 16:45 Prostate Specific Ag 5.2 ng/mL (0.0-4.0) H 10/09/20 05:32 Free PSA 1.08 ng/mL (N/A) 10/09/20 05:32 % Free PSA 20.8 % (.) 10/09/20 05:32 Vitamin B12 390.0 pg/mL (239-931) 10/06/20 20:00 Folate 6.29 ng/mL (>2.76) 10/06/20 20:00 TSH 0.91 uIU/mL (0.47-4.68) 10/06/20 16:45 Free T4 1.11 ng/dL (0.78-2.19) 10/06/20 16:45 Immunoglobulin A 425 mg/dL (61-437) 10/06/20 16:45 Immunoglobulin G 1650 mg/dL (603-1613) H 10/06/20 16:45 Immunoglobulin M 157 mg/dL (15-143) H 10/06/20 16:45 Serum Immunofixation Comment (.) A 10/06/20 16:45 Immunofixation Note Comment (.) 10/06/20 16:45 Urine Color YELLOW 10/10/20 05:35 Urine Appearance CLEAR 10/10/20 05:35 Urine pH 5.0 (5.0-9.0) 10/10/20 05:35 Ur Specific [place] 1.009 10/10/20 05:35 Urine Protein NEGATIVE mg/dL (NEGATIVE) 10/10/20 05:35 Urine Glucose (UA) NEGATIVE mg/dL (NEGATIVE) 10/10/20 05:35 Urine Ketones NEGATIVE mg/dL (NEGATIVE) 10/10/20 05:35 Urine Blood LARGE (NEGATIVE) H 10/10/20 05:35 Urine Nitrite (Reflex) NEGATIVE (NEGATIVE) 10/10/20 05:35 Urine Bilirubin NEGATIVE (NEGATIVE) 10/10/20 05:35 Urine Urobilinogen NEGATIVE mg/dL (<2.0) 10/10/20 05:35 Leukocyte Esterase Rfl NEGATIVE (NEGATIVE) 10/10/20 05:35 Urine RBC (Auto) 25 /HPF 10/10/20 05:35 Urine Bacteria (Auto) TRACE /HPF 10/10/20 05:35 Urine WBC (Reflex) 1 /HPF 10/10/20 05:35 Urine Mucus (Auto) RARE /LPF 10/10/20 05:35 Urine Total Protein 45.2 mg/dL (Not Estab.) 10/06/20 16:50 Urine Albumin 39.5 % (.) 10/06/20 16:50 U Spmna-8-Kskninhs 0.4 % (.) 10/06/20 16:50 U Wkrqy-8-Brdxvgue 18.8 % (.) 10/06/20 16:50 U Beta Globulin 24.0 % (.) 10/06/20 16:50 U Gamma Globulin 17.4 % (.) 10/06/20 16:50 U Random M-Rell (%) Not Observed % (Not Observ) 10/06/20 16:50 Urine PEP Note Comment (.) 10/06/20 16:50 Urine Ascorbic Acid NEGATIVE (NEGATIVE) 10/10/20 05:35 Urine Opiates Screen NEGATIVE 10/10/20 05:35 Urine Methadone Screen NEGATIVE 10/10/20 05:35 Ur Barbiturates Screen NEGATIVE 10/10/20 05:35 Ur Phencyclidine Scrn NEGATIVE 10/10/20 05:35 Ur Amphetamines Screen NEGATIVE 10/10/20 05:35 U Benzodiazepines Scrn NEGATIVE 10/10/20 05:35 Urine Cocaine Screen NEGATIVE 10/10/20 05:35 U Marijuana (THC) Screen NEGATIVE 10/10/20 05:35 Albumin (CONCHITA) 3.4 g/dL (2.9-4.4) 10/06/20 16:45 Cwdjv-5-Gdlajgdae CONCHITA Cancelled 10/06/20 16:45 Influenza A (RT-PCR) NEGATIVE (NEGATIVE) 10/07/20 09:55 Influenza B (RT-PCR) NEGATIVE (NEGATIVE) 10/07/20 09:55 RSV (RT-PCR) NEGATIVE (NEGATIVE) 10/07/20 09:55 SARS-CoV-2 Rap RNA(RT-PCR) NEGATIVE (NEGATIVE) 10/07/20 09:55 Slides for Path Review PATHOLOGIST REVIEWED 10/06/20 16:45 Blood Type A POSITIVE 10/06/20 18:54 Blood Type Confirm A POSITIVE 10/07/20 06:57 Antibody Screen NEGATIVE 10/06/20 18:54 Crossmatch See Detail 10/06/20 18:54 10/06/20 10/06/20 10/07/20 16:45 20:00 03:27 CK-MB (CK-2) 0.76 0.72 Troponin I < 0.012 < 0.012 NT-Pro-B Natriuret Pep 109 10/07/20 06:57 CK-MB (CK-2) 0.78 Troponin I < 0.012 NT-Pro-B Natriuret Pep Impressions: Chest/Abdomen CTA 10/06/20 16:16 IMPRESSION: Imaging is degraded by patient motion, with resultant artifact. The best possible images were obtained. Small pulmonary embolus left lung base. This is a small thrombus burden. No evidence of right heart strain. Chronic parenchymal lung change.. 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 ADDENDUM: Prior examination February 09, 2018 has been retrieved. The ascending thoracic aorta is stable. Chronic parenchymal lung changes are present previously. Stroke Is this a Stroke Patient?: No Acute Heart Failure Is this a Heart Failure Patient?: No
--- NOTE | 2020-10-12 12:06 | EKG REPORT ---
SEVERITY:- BORDERLINE ECG - SINUS RHYTHM NONSPECIFIC ST-T CHANGES ANTERIOR LEADS : Confirmed by: Papo Arthur MD 12-Oct-2020 12:06:15
[2020-10-15] MEDS ORDERED: FERRIC CARBOXYMALTOSE 750 MG in NORMAL SALINE 250 ML IV ONE (10:00)
== END 2020-10-10 18:00 | disposition home or self-care (01) | DRG 811 ==
LOC: ER 15:40 → EH 18:28 → 3W 20:48 → 3S 10-09 15:00
PROVIDERS: ADMIT Internal Medicine; ATTEND Internal Medicine
PROC: 30233N1 Transfusion of Nonautologous Red Blood Cells into Peripheral Vein, Percutaneous Approach (ICD-10-PCS; principal; 2020-10-07)
PROC: 0DB78ZX Excision of Stomach, Pylorus, Via Natural or Artificial Opening Endoscopic, Diagnostic (ICD-10-PCS; 2020-10-08)
PROC: 0DBF8ZX Excision of Right Large Intestine, Via Natural or Artificial Opening Endoscopic, Diagnostic (ICD-10-PCS; 2020-10-08 12:00)
DX: D50.0 Iron deficiency anemia secondary to blood loss (chronic) (principal); I26.99 Other pulmonary embolism without acute cor pulmonale; N13.8 Other obstructive and reflux uropathy; J43.9 Emphysema, unspecified; K57.90 Diverticulosis of intestine, part unspecified, without perforation or abscess without bleeding; I10 Essential (primary) hypertension; E11.42 Type 2 diabetes mellitus with diabetic polyneuropathy; N40.1 Benign prostatic hyperplasia with lower urinary tract symptoms; K29.70 Gastritis, unspecified, without bleeding; K64.8 Other hemorrhoids; I71.4 Abdominal aortic aneurysm, without rupture; Z87.891 Personal history of nicotine dependence; Z79.84 Long term (current) use of oral hypoglycemic drugs; Z79.899 Other long term (current) drug therapy; Z20.828 Contact with and (suspected) exposure to other viral communicable diseases
CPT/HCPCS: 36415; 36430; 43239; 45380; 71275; 80053; 80061; 80307; 81001; 813; 82140; 82150; 82553; 82607; 82728; 82746; 82803; 82962; 83036; 83540; 83550; 83690; 83880; 84100; 84154; 84166; 84439; 84443; 84484; 85025; 85045; 85610; 85730; 86320; 86850; 86900; 86901; 86920; 87040; 87077; 87086; 87186; 88305; 93005; 93010; 99285; 0241U; C9803; J1439; J1815; J2250; J3490; J7030; J7050; P9016

== ENCOUNTER 2020-10-29 09:04 | Outpatient (CLI) | payer MEDICARE ==
[~2020-10-29 09:04] MED LIST: FERRIC CARBOXYMALTOSE 750 MG in NORMAL SALINE 250 ML IV PRN
[2020-10-29 09:44] VITALS: BP 114/72
== END 2020-10-29 10:02 | disposition home or self-care (01) ==
LOC: II 09:04 → 5TH 09:07 → II 10:02
PROVIDERS: ATTEND Internal Medicine
DX: D50.9 Iron deficiency anemia, unspecified (principal)
CPT/HCPCS: 96365; J7050; J1439